=== PATIENT | male | born 1950 | race Caucasian/White ===

== ENCOUNTER 2022-08-08 11:50 | Inpatient (IN) ==
[2022-08-08] MEDS ORDERED: Piperacillin/Tazobac ADVAN 3.375 GM in NS 0.9% 100 ml BAG 100 ML IV ONE (12:15)
[2022-08-08] MEDS ORDERED: Vancomycin 1,000 MG in NS 0.9% 250 ml 250 ML IVPB ONE (12:15)
[2022-08-08] MEDS ORDERED: Pantoprazole VIAL 40 MG VIAL IV ONE (12:16)
[2022-08-08] MEDS ORDERED: Acetaminophen IV 1 GM/100ML 1,000 MG/100 ML BAG IV ONE ×2 (12:16→13:22)
[2022-08-08] MEDS ORDERED: Lactated Ringers 1000 ml BAG 1,000 ML IV ONE ×2 (12:16→13:30)
[2022-08-08 12:44] LABS: PCO2 Arterial 27 mmHg (35-45); PO2 Arterial 86 mmHg (80-100)
[2022-08-08 13:06] LABS: ABS Lymphocytes 1.2 10^3/uL (1.0-4.8); ABS Monocytes 0.5 10^3/uL (0.0-1.1); ABS Neutrophils 11.2 10^3/uL (1.5-7.6); ABS Nucleated RBC 0.01 10^3/ul; Eosinophil % 0.2 %; Hematocrit 30.4 % (38-53); Hemoglobin 9.2 g/dL (13.2-16.3); Mean Corpuscular Hgb Conc 30.3 g/dL (31-36); Mean Corpuscular Volume 82.4 fL (80-97); Nucleated Red Blood Cells % 0.1 /100 WBC (0.0-0.4); Platelet Count 440 10^3/uL (150-450); Red Blood Count 3.69 10^6/uL (4.06-5.63); Red Cell Distribution Width 18.5 % (12-17); White Blood Count 12.8 10^3/uL (3.6-10.2)
[2022-08-08 13:20] LABS: Activated Partial Thrombo Time 52.2 seconds (26.0-38.0)
[2022-08-08] MEDS ORDERED: Lactated Ringers 1000 ml BAG 500 ML IV ONE (13:31)
[2022-08-08 13:38] LABS: Potassium 4.3 mmol/L (3.5-5.0)
[2022-08-08 13:39] LABS: Albumin 2.6 g/dL (3.2-5.2); Albumin/Globulin Ratio 0.7 (1-3); C Reactive Protein 282.81 mg/L (<8.01); Creatinine, Serum 0.85 mg/dL (0.67-1.17); Globulin 3.9 g/dL (2-4); Total Bilirubin 0.2 mg/dL (0.2-1.0); Total Protein 6.5 g/dL (6.4-8.9); eGFR CKD-EPI 93.5 (>60)
[2022-08-08] MEDS ORDERED: Iodixanol (CONTRAST) 320 MG/ML 100 ML SDV IV ONE (14:15)
[2022-08-08 14:37] LABS: INR 6.16 (0.88-1.18)
[2022-08-08 14:56] LABS: High Sensitivity Troponin 1 Hr 50 pg/mL (<20)
[2022-08-08] MEDS ORDERED: Glycerin ADULT 2.4 gm SUPP PR ONE (15:16)
[2022-08-08 15:18] LABS: Urine Appearance Turbid; Urine Bilirubin Negative (Negative); Urine Blood 2+ (Negative); Urine Color Yellow; Urine Glucose Negative (Negative); Urine Ketones Negative (Negative); Urine Nitrite Negative (Negative); Urine Protein 1+(30 mg/dL) (Negative); Urine Specific Gravity 1.046 (1.002-1.030); Urine Urobilinogen Negative (Negative)
[2022-08-08 15:28] LABS: Urine Bacteria 1+ (Absent); Urine Red Blood Cell 3+(>10/hpf) (Absent); Urine White Blood Cell 3+(>20/hpf) (Absent)
[2022-08-08] MEDS ORDERED: Acetaminophen IV 1 GM/100ML 1,000 MG/100 ML BAG IV PRN (22:12)
[2022-08-09] MEDS: Cefepime 2 GM in Dextrose 2 GM/50 ML BAG IV SCH ×3 (00:07→22:58)
[2022-08-09] MEDS: metroNIDAZOLE IV 500 MG/100ML 500 MG/100 ML BAG IVPB SCH ×4 (00:46→23:40)
[2022-08-09] MEDS ORDERED: NS 0.45% 1000 ml BAG 1,000 ML IV SCH (03:00)
[2022-08-09] MEDS ORDERED: Valproic Acid LIQ 250 MG/5 ML UDC PO SCH (09:00)
[2022-08-09] MEDS: Valproic Acid LIQ 250 MG/5 ML UDC PO SCH ×2 (10:35→17:22)
[2022-08-09 13:10] LABS: ABS Eosinophils 0.2 10^3/uL (0.0-0.5); ABS Monocytes 0.3 10^3/uL (0.0-1.1); ABS Neutrophils 6.6 10^3/uL (1.5-7.6); ABS Nucleated RBC 0.01 10^3/ul; Eosinophil % 2.3 %; Hematocrit 27.7 % (38-53); Hemoglobin 8.5 g/dL (13.2-16.3); Lymphocyte % 12.5 %; Mean Corpuscular Hemoglobin 25.3 pg (27-33); Mean Corpuscular Hgb Conc 30.8 g/dL (31-36); Mean Corpuscular Volume 82.3 fL (80-97); Mean Platelet Volume 7.8 fL (7.5-11.2); Nucleated Red Blood Cells % 0.1 /100 WBC (0.0-0.4); Platelet Count 344 10^3/uL (150-450); Red Blood Count 3.37 10^6/uL (4.06-5.63); Red Cell Distribution Width 18.1 % (12-17); White Blood Count 8.1 10^3/uL (3.6-10.2)
[2022-08-09] MEDS ORDERED: Dextrose 50% Syringe 50 ml 25 GM/50 ML SYRINGE IV PUSH PRN (13:30)
[2022-08-09 13:47] LABS: INR 6.44 (0.88-1.18)
[2022-08-09 14:02] LABS: Albumin 2.3 g/dL (3.2-5.2); Magnesium 2.2 mg/dL (1.9-2.7)
[2022-08-09 14:09] LABS: Albumin/Globulin Ratio 0.7 (1-3); Globulin 3.4 g/dL (2-4); Phosphorus 3.6 mg/dL (2.5-5.0); Total Protein 5.7 g/dL (6.4-8.9)
[2022-08-09 15:00] LABS: Calcium 7.6 mg/dL (8.6-10.3)
[2022-08-09 15:01] LABS: Creatinine, Serum 0.65 mg/dL (0.67-1.17); Potassium 3.6 mmol/L (3.5-5.0); Total Bilirubin 0.2 mg/dL (0.2-1.0); eGFR CKD-EPI 101.4 (>60)
[2022-08-10 06:07] LABS: ABS Eosinophils 0.2 10^3/uL (0.0-0.5); ABS Lymphocytes 0.9 10^3/uL (1.0-4.8); ABS Monocytes 0.3 10^3/uL (0.0-1.1); ABS Neutrophils 4.7 10^3/uL (1.5-7.6); ABS Nucleated RBC 0.01 10^3/ul; Eosinophil % 2.9 %; Hematocrit 25.6 % (38-53); Hemoglobin 7.9 g/dL (13.2-16.3); Lymphocyte % 14.3 %; Mean Corpuscular Hemoglobin 24.9 pg (27-33); Mean Corpuscular Hgb Conc 30.7 g/dL (31-36); Mean Corpuscular Volume 81.1 fL (80-97); Mean Platelet Volume 8.2 fL (7.5-11.2); Nucleated Red Blood Cells % 0.2 /100 WBC (0.0-0.4); Platelet Count 274 10^3/uL (150-450); Red Blood Count 3.16 10^6/uL (4.06-5.63); Red Cell Distribution Width 18.1 % (12-17)
[2022-08-10 06:14] LABS: INR 8.19 (0.88-1.18)
[2022-08-10 06:23] LABS: Calcium 7.5 mg/dL (8.6-10.3); Creatinine, Serum 0.6 mg/dL (0.67-1.17); Magnesium 2.2 mg/dL (1.9-2.7); Phosphorus 3.5 mg/dL (2.5-5.0); Potassium 3.8 mmol/L (3.5-5.0); eGFR CKD-EPI 103.8 (>60)
[2022-08-10] MEDS ORDERED: Phytonadione Oral Solution 5 MG/25 ML UDC PO ONE (07:32)
[2022-08-10] MEDS: metroNIDAZOLE IV 500 MG/100ML 500 MG/100 ML BAG IVPB SCH ×3 (09:27→23:51)
[2022-08-10] MEDS: D5W 1000 ml BAG 1,000 ML IV SCH ×2 (09:27→22:40)
[2022-08-10] MEDS: Valproic Acid LIQ 250 MG/5 ML UDC PO SCH ×2 (09:28→19:06)
[2022-08-10] MEDS: Cefepime 2 GM in Dextrose 2 GM/50 ML BAG IV SCH ×2 (11:02→23:06)
[2022-08-10 12:12] LABS: Hemoglobin 7.8 g/dL (13.2-16.3); Mean Corpuscular Hemoglobin 25.5 pg (27-33); Mean Corpuscular Hgb Conc 31.3 g/dL (31-36); Mean Corpuscular Volume 81.5 fL (80-97); Mean Platelet Volume 8.2 fL (7.5-11.2); Platelet Count 260 10^3/uL (150-450); Red Blood Count 3.07 10^6/uL (4.06-5.63); Red Cell Distribution Width 18.1 % (12-17); White Blood Count 6.2 10^3/uL (3.6-10.2)
[2022-08-10] MEDS: Collagenase 250 units/gm OINT 1 tube TOPICAL SCH (15:18)
[2022-08-11 05:25] LABS: ABS Eosinophils 0.2 10^3/uL (0.0-0.5); ABS Monocytes 0.2 10^3/uL (0.0-1.1); ABS Neutrophils 5.3 10^3/uL (1.5-7.6); Eosinophil % 3.1 %; Hematocrit 24.6 % (38-53); Hemoglobin 7.8 g/dL (13.2-16.3); Lymphocyte % 14.2 %; Mean Corpuscular Hgb Conc 31.5 g/dL (31-36); Mean Corpuscular Volume 82.7 fL (80-97); Mean Platelet Volume 8.4 fL (7.5-11.2); Platelet Count 274 10^3/uL (150-450); Red Blood Count 2.98 10^6/uL (4.06-5.63); Red Cell Distribution Width 18.2 % (12-17); White Blood Count 6.7 10^3/uL (3.6-10.2)
[2022-08-11 05:28] LABS: INR 3.45 (0.88-1.18)
[2022-08-11 06:02] LABS: % Iron Saturation 11 % (15-55); .Transferrin 127 mg/dL (203-362); Anion Gap 10 mmol/L (2-16); Blood Urea Nitrogen 21 mg/dL (6-24); CO2 Carbon Dioxide 17 mmol/L (22-32); Calcium 7.1 mg/dL (8.6-10.3); Chloride 115 mmol/L (101-111); Creatinine, Serum 0.53 mg/dL (0.67-1.17); Glucose 167 mg/dL (70-100); Iron < 20 ug/dL (50-212); Magnesium 1.9 mg/dL (1.9-2.7); Phosphorus 2.7 mg/dL (2.5-5.0); Potassium 3.1 mmol/L (3.5-5.0); Sodium 142 mmol/L (135-145); Total Iron Binding Capacity 178 mcg/dL (250-450); Unsaturated Iron Binding 158 ug/dL; eGFR CKD-EPI 107.8 (>60)
[2022-08-11 06:27] LABS: Folate 15.97 ng/mL (5.90-24.80); Vitamin B12 632 pg/mL (180-914)
[2022-08-11] MEDS: metroNIDAZOLE IV 500 MG/100ML 500 MG/100 ML BAG IVPB SCH ×3 (07:19→23:35)
[2022-08-11] MEDS ORDERED: Magnesium Sulfate IV 1GM/100ML 1 GM/100 ML BAG IV ONE (07:56)
[2022-08-11] MEDS ORDERED: Iron Sucrose 20 MG/ML 5 ML VIAL IV PUSH ONE (07:57)
[2022-08-11] MEDS ORDERED: IRON-VITAMIN C 65/125(NF) (FERRONYL IRON) PO ONE (08:09)
[2022-08-11] MEDS ORDERED: Iron Sucrose 200 MG in NS 0.9% 100 ml IVPB ONE (08:30)
[2022-08-11] MEDS: Valproic Acid LIQ 250 MG/5 ML UDC PO SCH ×2 (08:55→17:00)
[2022-08-11] MEDS: KCL 20 MEQ/100 ML IVPREMIX 20 MEQ/100 ML BAG IV SCH ×3 (08:55→13:35)
[2022-08-11 09:03] LABS: TSH Ultra Thyroid Stim Horm 6.46 mcIU/mL (0.34-5.60)
[2022-08-11 09:16] LABS: Vitamin D Total 25(OH) 8.9 ng/mL (20-50)
[2022-08-11] MEDS: ceFAZolin 2 GM in NS PREMIX 2 GM/100 ML BAG IVPB SCH ×2 (10:51→16:59)
[2022-08-11] MEDS ORDERED: Furosemide 20 mg/2 ml IV VIAL IV ONE (11:08)
[2022-08-11] MEDS: Collagenase 250 units/gm OINT 1 tube TOPICAL SCH (15:45)
[2022-08-12] MEDS: ceFAZolin 2 GM in NS PREMIX 2 GM/100 ML BAG IVPB SCH ×3 (00:43→17:05)
[2022-08-12] MEDS: metroNIDAZOLE IV 500 MG/100ML 500 MG/100 ML BAG IVPB SCH ×3 (07:53→23:32)
[2022-08-12 08:07] LABS: Hematocrit 25.4 % (38-53); Hemoglobin 7.9 g/dL (13.2-16.3); Mean Corpuscular Hemoglobin 25.6 pg (27-33); Mean Corpuscular Hgb Conc 31.2 g/dL (31-36); Mean Platelet Volume 8.6 fL (7.5-11.2); Platelet Count 322 10^3/uL (150-450); Red Cell Distribution Width 17.9 % (12-17); White Blood Count 7.7 10^3/uL (3.6-10.2)
[2022-08-12 08:18] LABS: Albumin 2.1 g/dL (3.2-5.2); Albumin/Globulin Ratio 0.7 (1-3); Calcium 7.5 mg/dL (8.6-10.3); Creatinine, Serum 0.44 mg/dL (0.67-1.17); Globulin 3.1 g/dL (2-4); Magnesium 2.1 mg/dL (1.9-2.7); Phosphorus 2.4 mg/dL (2.5-5.0); Potassium 3.2 mmol/L (3.5-5.0); Total Bilirubin 0.2 mg/dL (0.2-1.0); Total Protein 5.2 g/dL (6.4-8.9)
[2022-08-12 08:35] LABS: Free T4 0.65 ng/dL (0.61-1.12)
[2022-08-12] MEDS ORDERED: Potassium Chloride LIQUID 20 MEQ/15 ML LIQUID PO ONE (08:37)
[2022-08-12] MEDS: Cholecalciferol (VIT D3) 1,000 unit TAB PO SCH (09:09)
[2022-08-12] MEDS: Valproic Acid LIQ 250 MG/5 ML UDC PO SCH ×2 (09:10→18:28)
[2022-08-13] MEDS: ceFAZolin 2 GM in NS PREMIX 2 GM/100 ML BAG IVPB SCH ×3 (00:51→17:41)
[2022-08-13 06:10] LABS: Hematocrit 24.3 % (38-53); Hemoglobin 7.6 g/dL (13.2-16.3); Mean Corpuscular Hemoglobin 25.3 pg (27-33); Mean Corpuscular Hgb Conc 31.4 g/dL (31-36); Mean Corpuscular Volume 80.5 fL (80-97); Mean Platelet Volume 8.4 fL (7.5-11.2); Platelet Count 300 10^3/uL (150-450); Red Blood Count 3.02 10^6/uL (4.06-5.63); Red Cell Distribution Width 18.1 % (12-17)
[2022-08-13 06:19] LABS: INR 1.7 (0.88-1.18)
[2022-08-13 06:32] LABS: ABS Eosinophils 0.2 10^3/uL (0.0-0.5); ABS Lymphocytes 1.2 10^3/uL (1.0-4.8); ABS Monocytes 0.4 10^3/uL (0.0-1.1); ABS Neutrophils 5.2 10^3/uL (1.5-7.6); ABS Nucleated RBC 0.01 10^3/ul; Albumin 2.1 g/dL (3.2-5.2); Albumin/Globulin Ratio 0.7 (1-3); Calcium 7.5 mg/dL (8.6-10.3); Creatinine, Serum 0.47 mg/dL (0.67-1.17); Eosinophil % 3.1 %; Lymphocyte % 17.4 %; Magnesium 1.9 mg/dL (1.9-2.7); Nucleated Red Blood Cells % 0.2 /100 WBC (0.0-0.4); Potassium 3.3 mmol/L (3.5-5.0); Total Bilirubin 0.2 mg/dL (0.2-1.0); Total Protein 5.1 g/dL (6.4-8.9); eGFR CKD-EPI 111.8 (>60)
[2022-08-13] MEDS ORDERED: Potassium Chloride LIQUID 20 MEQ/15 ML LIQUID PO ONE (07:37)
[2022-08-13] MEDS ORDERED: Magnesium Sulfate IV 1GM/100ML 1 GM/100 ML BAG IV ONE (08:30)
[2022-08-13] MEDS: metroNIDAZOLE IV 500 MG/100ML 500 MG/100 ML BAG IVPB SCH ×3 (09:05→23:32)
[2022-08-13] MEDS ORDERED: Enoxaparin 100 MG/ML SYR SUBCUT SCH (10:00)
[2022-08-13] MEDS: Cholecalciferol (VIT D3) 1,000 unit TAB PO SCH (11:54)
[2022-08-13] MEDS: Valproic Acid LIQ 250 MG/5 ML UDC PO SCH ×2 (11:54→17:41)
[2022-08-13] MEDS: Enoxaparin 100 MG/ML SYR SUBCUT SCH (21:30)
[2022-08-14] MEDS: ceFAZolin 2 GM in NS PREMIX 2 GM/100 ML BAG IVPB SCH ×3 (00:50→16:16)
[2022-08-14 06:23] LABS: Hematocrit 25.4 % (38-53); Hemoglobin 7.9 g/dL (13.2-16.3); Mean Corpuscular Hemoglobin 25.6 pg (27-33); Mean Corpuscular Hgb Conc 30.9 g/dL (31-36); Mean Corpuscular Volume 82.9 fL (80-97); Mean Platelet Volume 8.8 fL (7.5-11.2); Platelet Count 279 10^3/uL (150-450); Red Blood Count 3.07 10^6/uL (4.06-5.63); Red Cell Distribution Width 18.3 % (12-17); White Blood Count 5.6 10^3/uL (3.6-10.2)
[2022-08-14 06:27] LABS: INR 1.65 (0.88-1.18)
[2022-08-14 06:39] LABS: Potassium 3.3 mmol/L (3.5-5.0)
[2022-08-14 06:40] LABS: Albumin/Globulin Ratio 0.7 (1-3); Calcium 7.3 mg/dL (8.6-10.3); Creatinine, Serum 0.45 mg/dL (0.67-1.17); Globulin 2.9 g/dL (2-4); Magnesium 2.1 mg/dL (1.9-2.7); Phosphorus 2.6 mg/dL (2.5-5.0); Total Bilirubin 0.2 mg/dL (0.2-1.0); Total Protein 4.9 g/dL (6.4-8.9); eGFR CKD-EPI 113.3 (>60)
[2022-08-14] MEDS: metroNIDAZOLE IV 500 MG/100ML 500 MG/100 ML BAG IVPB SCH (07:39)
[2022-08-14] MEDS ORDERED: Potassium Chloride LIQUID 20 MEQ/15 ML LIQUID PO ONE (08:15)
[2022-08-14] MEDS: Cholecalciferol (VIT D3) 1,000 unit TAB PO SCH (11:03)
[2022-08-14] MEDS: Enoxaparin 100 MG/ML SYR SUBCUT SCH ×2 (11:03→20:12)
[2022-08-14] MEDS: Valproic Acid LIQ 250 MG/5 ML UDC PO SCH ×2 (11:04→17:59)
[2022-08-14] MEDS: Collagenase 250 units/gm OINT 1 tube TOPICAL SCH (11:11)
[2022-08-14 12:43] LABS: C Reactive Protein 122.13 mg/L (<8.01)
[2022-08-15] MEDS: ceFAZolin 2 GM in NS PREMIX 2 GM/100 ML BAG IVPB SCH ×3 (00:28→17:14)
[2022-08-15] MEDS ORDERED: Lidocaine 2% PF 5 ML VIAL ONE (06:11)
[2022-08-15] MEDS ORDERED: Propofol 10 MG/ML 20 ML BTL ONE ×2 (06:14→08:21)
[2022-08-15] MEDS ORDERED: Rocuronium 50 mg VIAL 10 mg/ml 5 ml VIAL (50 mg) ONE (06:15)
[2022-08-15 06:18] LABS: Hematocrit 22.8 % (38-53); Hemoglobin 7.3 g/dL (13.2-16.3); Mean Corpuscular Hemoglobin 26.1 pg (27-33); Mean Corpuscular Hgb Conc 31.8 g/dL (31-36); Mean Platelet Volume 8.7 fL (7.5-11.2); Platelet Count 277 10^3/uL (150-450); Red Blood Count 2.78 10^6/uL (4.06-5.63); Red Cell Distribution Width 18.3 % (12-17); White Blood Count 5.4 10^3/uL (3.6-10.2)
[2022-08-15 06:35] LABS: Albumin 1.9 g/dL (3.2-5.2); Anion Gap 11 mmol/L (2-16); CO2 Carbon Dioxide 20 mmol/L (22-32); Calcium 7.2 mg/dL (8.6-10.3); Chloride 116 mmol/L (101-111); Potassium 3.3 mmol/L (3.5-5.0); Sodium 147 mmol/L (135-145)
[2022-08-15 06:41] LABS: AST 9 U/L (13-39); Albumin/Globulin Ratio 0.7 (1-3); Alkaline Phosphatase 78 U/L (35-149); Blood Urea Nitrogen 20 mg/dL (6-24); Globulin 2.8 g/dL (2-4); Glucose 84 mg/dL (70-100); Total Protein 4.7 g/dL (6.4-8.9); eGFR CKD-EPI 117.4 (>60)
[2022-08-15 06:45] LABS: ALT < 3 U/L (7-52)
[2022-08-15] MEDS: KCL 20 MEQ/100 ML IVPREMIX 20 MEQ/100 ML BAG IV SCH ×2 (08:17→15:02)
[2022-08-15] MEDS ORDERED: Glycopyrrolate IV 0.2 MG/ML 1 ML VIAL ONE (08:21)
[2022-08-15] MEDS ORDERED: fentaNYL 100 mcg/2 ml 50 MCG/ML VIAL ONE (08:24)
[2022-08-15] MEDS ORDERED: Bupivacaine 0.25% SDV 30 ML ONE (09:42)
[2022-08-15] MEDS ORDERED: Phenylephrine 40 mcg/mL 10mL (400mcg) SYRINGE ONE (10:20)
[2022-08-15] MEDS ORDERED: KCL 20 MEQ/100 ML IVPREMIX 20 MEQ/100 ML BAG ONE (15:01)
[2022-08-15] MEDS: Cholecalciferol (VIT D3) 1,000 unit TAB PO SCH (15:03)
[2022-08-15] MEDS: Valproic Acid LIQ 250 MG/5 ML UDC PO SCH ×2 (15:04→17:15)
[2022-08-16] MEDS: ceFAZolin 2 GM in NS PREMIX 2 GM/100 ML BAG IVPB SCH ×4 (00:27→23:59)
[2022-08-16] MEDS: Morphine 2 MG/ML SYRINGE IV PRN ×2 (02:38→17:12)
[2022-08-16 06:18] LABS: Hematocrit 22.1 % (38-53); Hemoglobin 6.7 g/dL (13.2-16.3); Mean Corpuscular Hemoglobin 24.6 pg (27-33); Mean Corpuscular Hgb Conc 30.1 g/dL (31-36); Mean Corpuscular Volume 81.6 fL (80-97); Mean Platelet Volume 8.7 fL (7.5-11.2); Platelet Count 283 10^3/uL (150-450); Red Blood Count 2.71 10^6/uL (4.06-5.63); Red Cell Distribution Width 18.3 % (12-17); White Blood Count 5.7 10^3/uL (3.6-10.2)
[2022-08-16 06:33] LABS: Creatinine, Serum 0.39 mg/dL (0.67-1.17); Magnesium 1.9 mg/dL (1.9-2.7); Potassium 3.8 mmol/L (3.5-5.0); eGFR CKD-EPI 118.3 (>60)
[2022-08-16] MEDS: Valproic Acid LIQ 250 MG/5 ML UDC PO SCH ×2 (08:41→17:17)
[2022-08-16] MEDS: Cholecalciferol (VIT D3) 1,000 unit TAB PO SCH (08:42)
[2022-08-16] MEDS: Enoxaparin 100 MG/ML SYR SUBCUT SCH ×2 (08:46→20:21)
[2022-08-16] MEDS: KCL 20 MEQ/100 ML IVPREMIX 20 MEQ/100 ML BAG IV ONE ×2 (09:13→09:48)
[2022-08-16] MEDS ORDERED: CALCIUM GLUCONATE 1GM/50ML NS 1 GM/50 ML BAG IV ONE (10:10)
[2022-08-16 16:16] LABS: Hemoglobin 7.9 g/dL (13.2-16.3); Mean Corpuscular Hemoglobin 25.5 pg (27-33); Mean Corpuscular Hgb Conc 31.6 g/dL (31-36); Mean Corpuscular Volume 80.7 fL (80-97); Mean Platelet Volume 8.2 fL (7.5-11.2); Platelet Count 267 10^3/uL (150-450); Red Blood Count 3.09 10^6/uL (4.06-5.63); Red Cell Distribution Width 18.8 % (12-17); White Blood Count 5.6 10^3/uL (3.6-10.2)
[2022-08-17 06:05] LABS: Hematocrit 25.2 % (38-53); Hemoglobin 8.1 g/dL (13.2-16.3); Mean Corpuscular Hemoglobin 25.5 pg (27-33); Mean Corpuscular Volume 79.5 fL (80-97); Mean Platelet Volume 8.3 fL (7.5-11.2); Platelet Count 289 10^3/uL (150-450); Red Blood Count 3.17 10^6/uL (4.06-5.63); Red Cell Distribution Width 18.7 % (12-17); White Blood Count 6.8 10^3/uL (3.6-10.2)
[2022-08-17 06:21] LABS: Calcium 7.5 mg/dL (8.6-10.3); Creatinine, Serum 0.34 mg/dL (0.67-1.17); Magnesium 1.8 mg/dL (1.9-2.7); Phosphorus 2.2 mg/dL (2.5-5.0); Potassium 3.5 mmol/L (3.5-5.0); eGFR CKD-EPI 123.3 (>60)
[2022-08-17] MEDS ORDERED: Magnesium Sulfate IV 3 GM in NS 0.9% 100 ml BAG 100 ML IVPB ONE (07:50)
[2022-08-17] MEDS: Morphine 2 MG/ML SYRINGE IV PRN ×2 (07:53→09:14)
[2022-08-17] MEDS: ceFAZolin 2 GM in NS PREMIX 2 GM/100 ML BAG IVPB SCH (07:53)
[2022-08-17] MEDS ORDERED: Potassium Phosphate IV 15 MMOL in NS 0.9% 250 ml 250 ML IVPB ONE (08:00)
[2022-08-17 08:56] LABS: C Reactive Protein 88.38 mg/L (<8.01)
[2022-08-17] MEDS: Valproic Acid LIQ 250 MG/5 ML UDC PO SCH ×2 (10:23→17:27)
[2022-08-17] MEDS: Cholecalciferol (VIT D3) 1,000 unit TAB PO SCH (10:24)
[2022-08-17] MEDS: Enoxaparin 100 MG/ML SYR SUBCUT SCH ×2 (10:27→21:49)
[2022-08-18 05:55] LABS: Hematocrit 25.9 % (38-53); Hemoglobin 8.4 g/dL (13.2-16.3); Mean Corpuscular Hemoglobin 26.2 pg (27-33); Mean Corpuscular Hgb Conc 32.5 g/dL (31-36); Mean Corpuscular Volume 80.6 fL (80-97); Mean Platelet Volume 7.8 fL (7.5-11.2); Platelet Count 293 10^3/uL (150-450); Red Blood Count 3.22 10^6/uL (4.06-5.63); Red Cell Distribution Width 19.2 % (12-17); White Blood Count 6.8 10^3/uL (3.6-10.2)
[2022-08-18 06:16] LABS: Calcium 7.3 mg/dL (8.6-10.3); Creatinine, Serum 0.32 mg/dL (0.67-1.17); Phosphorus 2.9 mg/dL (2.5-5.0); Potassium 3.4 mmol/L (3.5-5.0); eGFR CKD-EPI 125.6 (>60)
[2022-08-18] MEDS ORDERED: KCL 20 MEQ/100 ML IVPREMIX 20 MEQ/100 ML BAG IV ONE (07:30)
[2022-08-18] MEDS: Cholecalciferol (VIT D3) 1,000 unit TAB PO SCH (08:39)
[2022-08-18] MEDS: Enoxaparin 100 MG/ML SYR SUBCUT SCH ×2 (08:40→21:16)
[2022-08-18] MEDS: Valproic Acid LIQ 250 MG/5 ML UDC PO SCH ×2 (08:43→18:22)
[2022-08-19] MEDS: Cholecalciferol (VIT D3) 1,000 unit TAB PO SCH (08:41)
[2022-08-19] MEDS: Enoxaparin 100 MG/ML SYR SUBCUT SCH ×2 (08:42→22:06)
[2022-08-19] MEDS: Valproic Acid LIQ 250 MG/5 ML UDC PO SCH ×2 (08:42→18:18)
[2022-08-19 11:47] LABS: Calcium 7.3 mg/dL (8.6-10.3); Creatinine, Serum 0.31 mg/dL (0.67-1.17); Magnesium 1.8 mg/dL (1.9-2.7); Phosphorus 2.8 mg/dL (2.5-5.0); Potassium 3.2 mmol/L (3.5-5.0); eGFR CKD-EPI 126.8 (>60)
[2022-08-19] MEDS: Morphine 2 MG/ML SYRINGE IV PRN (14:33)
[2022-08-19] MEDS ORDERED: Magnesium Sulfate IV 3 GM in NS 0.9% 100 ml BAG 100 ML IVPB ONE (17:18)
[2022-08-19] MEDS: KCL 20 MEQ/100 ML IVPREMIX 20 MEQ/100 ML BAG IV SCH ×2 (18:08→22:07)
[2022-08-20] MEDS: Morphine 2 MG/ML SYRINGE IV PRN ×2 (00:47→13:48)
[2022-08-20] MEDS ORDERED: Magnesium Sulfate 2 gm BAG 2 GM/50 ML BAG IVPB ONE (07:16)
[2022-08-20] MEDS ORDERED: Potassium Chlor 20 meq TAB.ER PO ONE (07:17)
[2022-08-20 08:20] LABS: ABS Eosinophils 0.1 10^3/uL (0.0-0.5); ABS Lymphocytes 1.3 10^3/uL (1.0-4.8); ABS Neutrophils 5.6 10^3/uL (1.5-7.6); ABS Nucleated RBC 0.01 10^3/ul; Eosinophil % 1.5 %; Hematocrit 25.8 % (38-53); Hemoglobin 8.3 g/dL (13.2-16.3); Lymphocyte % 16.1 %; Mean Corpuscular Hgb Conc 32.4 g/dL (31-36); Mean Corpuscular Volume 80.1 fL (80-97); Mean Platelet Volume 7.8 fL (7.5-11.2); Nucleated Red Blood Cells % 0.1 /100 WBC (0.0-0.4); Platelet Count 306 10^3/uL (150-450); Red Blood Count 3.21 10^6/uL (4.06-5.63); Red Cell Distribution Width 19.8 % (12-17)
[2022-08-20 08:40] LABS: Calcium 7.3 mg/dL (8.6-10.3); Creatinine, Serum 0.34 mg/dL (0.67-1.17); Magnesium 2.2 mg/dL (1.9-2.7); Potassium 3.8 mmol/L (3.5-5.0); eGFR CKD-EPI 123.3 (>60)
[2022-08-20] MEDS: Valproic Acid LIQ 250 MG/5 ML UDC PO SCH ×2 (09:34→18:34)
[2022-08-20] MEDS: Cholecalciferol (VIT D3) 1,000 unit TAB PO SCH (09:35)
[2022-08-20] MEDS: Enoxaparin 100 MG/ML SYR SUBCUT SCH ×2 (09:36→20:43)
[2022-08-20] MEDS ORDERED: Lactated Ringers 1000 ml BAG 1,000 ML IV SCH ×2 (10:00→14:34)
[2022-08-20 10:29] LABS: INR 1.18 (0.88-1.18)
[2022-08-20] MEDS: Acetaminophen IV 1 GM/100ML 1,000 MG/100 ML BAG IV PRN (13:38)
[2022-08-20 13:51] LABS: Hemoglobin 8.1 g/dL (13.2-16.3); Mean Corpuscular Hemoglobin 26.1 pg (27-33); Mean Corpuscular Hgb Conc 32.6 g/dL (31-36); Mean Corpuscular Volume 80.2 fL (80-97); Mean Platelet Volume 7.3 fL (7.5-11.2); Platelet Count 326 10^3/uL (150-450); Red Blood Count 3.11 10^6/uL (4.06-5.63); Red Cell Distribution Width 19.9 % (12-17); White Blood Count 8.7 10^3/uL (3.6-10.2)
[2022-08-20 14:31] LABS: Albumin 2.3 g/dL (3.2-5.2); Calcium 7.3 mg/dL (8.6-10.3); Potassium 3.6 mmol/L (3.5-5.0); Total Bilirubin 0.2 mg/dL (0.2-1.0)
[2022-08-20 14:37] LABS: Albumin/Globulin Ratio 0.6 (1-3); Creatinine, Serum 0.35 mg/dL (0.67-1.17); Globulin 3.7 g/dL (2-4); eGFR CKD-EPI 122.2 (>60)
[2022-08-20 14:55] LABS: ABS Basophils 0.1 10^3/uL (0.0-0.1); ABS Eosinophils 0.1 10^3/uL (0.0-0.5); ABS Lymphocytes 1.2 10^3/uL (1.0-4.8); ABS Neutrophils 6.3 10^3/uL (1.5-7.6); ABS Nucleated RBC 0.01 10^3/ul; Eosinophil % 1.2 %; Lymphocyte % 13.7 %; Nucleated Red Blood Cells % 0.1 /100 WBC (0.0-0.4)
[2022-08-20] MEDS ORDERED: Lactated Ringers 1000 ml BAG 1,000 ML IV ONE (15:39)
[2022-08-20] MEDS: Lactated Ringers 1000 ml BAG 1,000 ML IV SCH ×2 (16:54→23:34)
[2022-08-20] MEDS ORDERED: Warfarin per PHARMACY **NOTE FOLLOW UP SCH (18:00)
[2022-08-21] MEDS: Acetaminophen IV 1 GM/100ML 1,000 MG/100 ML BAG IV PRN (02:27)
[2022-08-21 07:00] LABS: ABS Eosinophils 0.1 10^3/uL (0.0-0.5); ABS Lymphocytes 1.1 10^3/uL (1.0-4.8); ABS Monocytes 0.9 10^3/uL (0.0-1.1); ABS Neutrophils 5.7 10^3/uL (1.5-7.6); Eosinophil % 1.4 %; Hematocrit 23.5 % (38-53); Hemoglobin 7.5 g/dL (13.2-16.3); Lymphocyte % 13.9 %; Mean Corpuscular Hemoglobin 26.2 pg (27-33); Mean Corpuscular Hgb Conc 31.9 g/dL (31-36); Mean Platelet Volume 7.8 fL (7.5-11.2); Nucleated Red Blood Cells % 0.1 /100 WBC (0.0-0.4); Platelet Count 267 10^3/uL (150-450); Red Blood Count 2.86 10^6/uL (4.06-5.63); Red Cell Distribution Width 19.6 % (12-17); White Blood Count 7.8 10^3/uL (3.6-10.2)
[2022-08-21 07:04] LABS: INR 1.26 (0.88-1.18)
[2022-08-21 07:13] LABS: Anion Gap 10 mmol/L (2-16); Blood Urea Nitrogen 7 mg/dL (6-24); CO2 Carbon Dioxide 24 mmol/L (22-32); Calcium 7.2 mg/dL (8.6-10.3); Chloride 103 mmol/L (101-111); Creatinine, Serum 0.32 mg/dL (0.67-1.17); Glucose 78 mg/dL (70-100); Potassium 3.2 mmol/L (3.5-5.0); Sodium 137 mmol/L (135-145); eGFR CKD-EPI 125.6 (>60)
[2022-08-21] MEDS: Lactated Ringers 1000 ml BAG 1,000 ML IV SCH (07:31)
[2022-08-21 08:55] LABS: Magnesium 1.9 mg/dL (1.9-2.7)
[2022-08-21] MEDS: Enoxaparin 100 MG/ML SYR SUBCUT SCH ×2 (09:27→22:18)
[2022-08-21] MEDS: Cholecalciferol (VIT D3) 1,000 unit TAB PO SCH (09:27)
[2022-08-21] MEDS: Valproic Acid LIQ 250 MG/5 ML UDC PO SCH ×2 (09:27→17:58)
[2022-08-21] MEDS ORDERED: NS 0.9% 1000 ml BAG 1,000 ML IV ONE ×2 (10:12→18:22)
[2022-08-21] MEDS ORDERED: NS 0.9% 1000 ml BAG 1,000 ML IV SCH (10:15)
[2022-08-21] MEDS: Morphine 2 MG/ML SYRINGE IV PRN ×2 (16:17→20:57)
[2022-08-21] MEDS: Warfarin DAILY REMINDER **NOTE FOLLOW UP SCH (17:58)
[2022-08-21] MEDS ORDERED: Potassium Chlor 20 meq TAB.ER PO ONE (18:26)
[2022-08-21 19:10] LABS: Rapid COVID-19 Molecular Undetected (Undetected)
[2022-08-21 19:15] LABS: Lipase < 10 U/L (11.0-82.0)
[2022-08-21] MEDS ORDERED: Potassium Chloride LIQUID 20 MEQ/15 ML LIQUID PO ONE (19:30)
[2022-08-21] MEDS ORDERED: Iohexol 350 (CONTRAST) 500 ML MDV IV ONE (20:36)
[2022-08-22] MEDS: Morphine 2 MG/ML SYRINGE IV PRN (02:06)
[2022-08-22 06:10] LABS: ABS Basophils 0.1 10^3/uL (0.0-0.1); ABS Eosinophils 0.1 10^3/uL (0.0-0.5); ABS Monocytes 0.8 10^3/uL (0.0-1.1); ABS Neutrophils 4.2 10^3/uL (1.5-7.6); Eosinophil % 1.3 %; Hematocrit 24.8 % (38-53); Hemoglobin 7.9 g/dL (13.2-16.3); Lymphocyte % 16.7 %; Mean Corpuscular Hemoglobin 26.4 pg (27-33); Mean Corpuscular Hgb Conc 31.7 g/dL (31-36); Mean Corpuscular Volume 83.2 fL (80-97); Mean Platelet Volume 7.6 fL (7.5-11.2); Nucleated Red Blood Cells % 0.1 /100 WBC (0.0-0.4); Platelet Count 254 10^3/uL (150-450); Red Blood Count 2.98 10^6/uL (4.06-5.63); Red Cell Distribution Width 19.4 % (12-17); White Blood Count 6.1 10^3/uL (3.6-10.2)
[2022-08-22 06:12] LABS: INR 1.31 (0.88-1.18)
[2022-08-22 06:23] LABS: Calcium 7.6 mg/dL (8.6-10.3); Potassium 4.1 mmol/L (3.5-5.0)
[2022-08-22 06:29] LABS: Creatinine, Serum 0.33 mg/dL (0.67-1.17); eGFR CKD-EPI 124.4 (>60)
[2022-08-22] MEDS: Valproic Acid LIQ 250 MG/5 ML UDC PO SCH ×2 (09:03→18:17)
[2022-08-22] MEDS: Cholecalciferol (VIT D3) 1,000 unit TAB PO SCH (09:06)
[2022-08-22] MEDS: Enoxaparin 100 MG/ML SYR SUBCUT SCH ×2 (09:07→20:40)
[2022-08-22 10:16] LABS: C Reactive Protein 154.16 mg/L (<8.01)
[2022-08-22] MEDS ORDERED: NS 0.9% 1000 ml BAG 1,000 ML IV ONE (13:33)
[2022-08-22] MEDS: Warfarin DAILY REMINDER **NOTE FOLLOW UP SCH (18:22)
[2022-08-23 05:32] LABS: ABS Basophils 0.2 10^3/uL (0.0-0.1); ABS Eosinophils 0.1 10^3/uL (0.0-0.5); ABS Lymphocytes 1.1 10^3/uL (1.0-4.8); ABS Monocytes 0.6 10^3/uL (0.0-1.1); ABS Neutrophils 3.5 10^3/uL (1.5-7.6); ABS Nucleated RBC 0.01 10^3/ul; Eosinophil % 2.1 %; Hematocrit 23.7 % (38-53); Hemoglobin 7.6 g/dL (13.2-16.3); Lymphocyte % 19.3 %; Mean Corpuscular Hemoglobin 25.8 pg (27-33); Mean Corpuscular Hgb Conc 32.2 g/dL (31-36); Mean Corpuscular Volume 80.3 fL (80-97); Mean Platelet Volume 6.9 fL (7.5-11.2); Nucleated Red Blood Cells % 0.1 /100 WBC (0.0-0.4); Platelet Count 249 10^3/uL (150-450); Red Blood Count 2.95 10^6/uL (4.06-5.63); Red Cell Distribution Width 18.9 % (12-17); White Blood Count 5.5 10^3/uL (3.6-10.2)
[2022-08-23 05:39] LABS: INR 1.31 (0.88-1.18)
[2022-08-23 06:14] LABS: Albumin 2.1 g/dL (3.2-5.2); Albumin/Globulin Ratio 0.6 (1-3); Calcium 7.6 mg/dL (8.6-10.3); Globulin 3.4 g/dL (2-4); Potassium 3.4 mmol/L (3.5-5.0); Total Bilirubin 0.1 mg/dL (0.2-1.0); Total Protein 5.5 g/dL (6.4-8.9)
[2022-08-23 06:15] LABS: Creatinine, Serum 0.29 mg/dL (0.67-1.17); eGFR CKD-EPI 129.3 (>60)
[2022-08-23 08:01] LABS: Magnesium 1.8 mg/dL (1.9-2.7)
[2022-08-23] MEDS: Potassium Chlor 20 meq TAB.ER PO SCH ×2 (09:10→11:18)
[2022-08-23] MEDS ORDERED: Magnesium Sulfate 2 gm BAG 2 GM/50 ML BAG IVPB ONE (09:23)
[2022-08-23] MEDS: Cholecalciferol (VIT D3) 1,000 unit TAB PO SCH (10:06)
[2022-08-23] MEDS: Valproic Acid LIQ 250 MG/5 ML UDC PO SCH ×2 (10:12→18:38)
[2022-08-23] MEDS: Enoxaparin 100 MG/ML SYR SUBCUT SCH ×2 (10:15→22:38)
[2022-08-23] MEDS: Albumin Human 25% 12.5 GM/50 ML BTL IV SCH ×3 (12:25→23:12)
[2022-08-23] MEDS ORDERED: cefTRIAXone 2 gm/50 mL D5W 2 GM/50 ML BAG IV SCH (16:30)
[2022-08-23] MEDS ORDERED: Ampicillin ADVAN 2 GM in NS 0.9% 100 ml BAG 100 ML IVPB SCH (17:00)
[2022-08-23] MEDS ORDERED: Acyclovir IV 860 MG in NS 0.9% 250 ml 250 ML IVPB SCH (17:00)
[2022-08-23] MEDS ORDERED: Vancomycin 1,250 MG in NS 0.9% 250 ml 250 ML IVPB SCH (17:00)
[2022-08-23] MEDS: Warfarin DAILY REMINDER **NOTE FOLLOW UP SCH (18:38)
[2022-08-24] MEDS: Albumin Human 25% 12.5 GM/50 ML BTL IV SCH ×4 (00:20→19:28)
[2022-08-24 06:01] LABS: ABS Eosinophils 0.1 10^3/uL (0.0-0.5); ABS Lymphocytes 0.9 10^3/uL (1.0-4.8); ABS Monocytes 0.6 10^3/uL (0.0-1.1); ABS Neutrophils 3.2 10^3/uL (1.5-7.6); ABS Nucleated RBC 0.01 10^3/ul; Eosinophil % 1.8 %; Hematocrit 22.7 % (38-53); Hemoglobin 7.3 g/dL (13.2-16.3); Lymphocyte % 18.9 %; Mean Corpuscular Hemoglobin 25.8 pg (27-33); Mean Corpuscular Volume 80.7 fL (80-97); Mean Platelet Volume 7.4 fL (7.5-11.2); Nucleated Red Blood Cells % 0.2 /100 WBC (0.0-0.4); Platelet Count 238 10^3/uL (150-450); Red Blood Count 2.82 10^6/uL (4.06-5.63); Red Cell Distribution Width 19.2 % (12-17); White Blood Count 4.8 10^3/uL (3.6-10.2)
[2022-08-24 06:06] LABS: INR 1.41 (0.88-1.18)
[2022-08-24 06:36] LABS: Albumin 2.6 g/dL (3.2-5.2); Albumin/Globulin Ratio 0.8 (1-3); Calcium 7.7 mg/dL (8.6-10.3); Creatinine, Serum 0.3 mg/dL (0.67-1.17); Globulin 3.4 g/dL (2-4); Potassium 3.4 mmol/L (3.5-5.0); Total Bilirubin 0.2 mg/dL (0.2-1.0)
[2022-08-24] MEDS ORDERED: Potassium Chlor 20 meq TAB.ER PO ONE (07:25)
[2022-08-24 07:53] LABS: Magnesium 1.9 mg/dL (1.9-2.7)
[2022-08-24] MEDS: Cholecalciferol (VIT D3) 1,000 unit TAB PO SCH (08:36)
[2022-08-24] MEDS: Enoxaparin 100 MG/ML SYR SUBCUT SCH ×2 (08:37→21:37)
[2022-08-24] MEDS: Valproic Acid LIQ 250 MG/5 ML UDC PO SCH ×2 (08:37→18:22)
[2022-08-24] MEDS ORDERED: Furosemide 20 mg/2 ml IV VIAL IV ONE (14:39)
[2022-08-24] MEDS: Warfarin DAILY REMINDER **NOTE FOLLOW UP SCH (18:24)
[2022-08-25] MEDS: Albumin Human 25% 12.5 GM/50 ML BTL IV SCH ×4 (00:16→17:58)
[2022-08-25 06:09] LABS: Hematocrit 22.1 % (38-53); Hemoglobin 7.2 g/dL (13.2-16.3); Mean Corpuscular Hgb Conc 32.7 g/dL (31-36); Mean Corpuscular Volume 79.5 fL (80-97); Mean Platelet Volume 6.7 fL (7.5-11.2); Platelet Count 263 10^3/uL (150-450); Red Blood Count 2.78 10^6/uL (4.06-5.63); Red Cell Distribution Width 19.2 % (12-17); White Blood Count 5.3 10^3/uL (3.6-10.2)
[2022-08-25 06:21] LABS: INR 1.78 (0.88-1.18)
[2022-08-25 06:38] LABS: Albumin 3.1 g/dL (3.2-5.2); Albumin/Globulin Ratio 0.9 (1-3); Calcium 8.1 mg/dL (8.6-10.3); Creatinine, Serum 0.33 mg/dL (0.67-1.17); Globulin 3.4 g/dL (2-4); Potassium 3.3 mmol/L (3.5-5.0); Total Bilirubin 0.2 mg/dL (0.2-1.0); Total Protein 6.5 g/dL (6.4-8.9); eGFR CKD-EPI 124.4 (>60)
[2022-08-25 07:29] LABS: ABS Eosinophils 0.1 10^3/uL (0.0-0.5); ABS Lymphocytes 1.1 10^3/uL (1.0-4.8); ABS Monocytes 0.7 10^3/uL (0.0-1.1); ABS Neutrophils 3.3 10^3/uL (1.5-7.6); ABS Nucleated RBC 0.01 10^3/ul; Lymphocyte % 20.2 %; Nucleated Red Blood Cells % 0.2 /100 WBC (0.0-0.4)
[2022-08-25] MEDS: Valproic Acid LIQ 250 MG/5 ML UDC PO SCH ×2 (10:03→17:06)
[2022-08-25] MEDS: Potassium Chloride LIQUID 20 MEQ/15 ML LIQUID PO SCH (10:03)
[2022-08-25] MEDS: Cholecalciferol (VIT D3) 1,000 unit TAB PO SCH (10:05)
[2022-08-25] MEDS: Enoxaparin 100 MG/ML SYR SUBCUT SCH ×2 (10:05→19:26)
[2022-08-25] MEDS ORDERED: Albumin Human 25% 12.5 GM/50 ML BTL IV SCH (15:00)
[2022-08-25] MEDS: Warfarin DAILY REMINDER **NOTE FOLLOW UP SCH (17:29)
[2022-08-26] MEDS: Albumin Human 25% 12.5 GM/50 ML BTL IV SCH ×3 (01:06→13:30)
[2022-08-26 01:31] LABS: ABS Basophils 0.1 10^3/uL (0.0-0.1); ABS Eosinophils 0.1 10^3/uL (0.0-0.5); ABS Monocytes 0.7 10^3/uL (0.0-1.1); ABS Neutrophils 4.8 10^3/uL (1.5-7.6); ABS Nucleated RBC 0.02 10^3/ul; Eosinophil % 1.4 %; Hematocrit 22.9 % (38-53); Hemoglobin 7.6 g/dL (13.2-16.3); Mean Corpuscular Hemoglobin 26.5 pg (27-33); Mean Corpuscular Hgb Conc 33.3 g/dL (31-36); Mean Corpuscular Volume 79.6 fL (80-97); Mean Platelet Volume 7.1 fL (7.5-11.2); Nucleated Red Blood Cells % 0.2 /100 WBC (0.0-0.4); Platelet Count 304 10^3/uL (150-450); Red Blood Count 2.88 10^6/uL (4.06-5.63); White Blood Count 6.6 10^3/uL (3.6-10.2)
[2022-08-26 01:46] LABS: Calcium 8.2 mg/dL (8.6-10.3); Creatinine, Serum 0.39 mg/dL (0.67-1.17); Potassium 3.5 mmol/L (3.5-5.0); eGFR CKD-EPI 118.3 (>60)
[2022-08-26] MEDS ORDERED: NS 0.9% 1000 ml BAG 1,000 ML IV SCH (02:15)
[2022-08-26] MEDS ORDERED: Vancomycin per Pharmacy 1 EA NOTE FOLLOW UP SCH (03:00)
[2022-08-26] MEDS: Cefepime 2 GM in Dextrose 2 GM/50 ML BAG IV SCH ×2 (03:58→16:43)
[2022-08-26 05:19] LABS: Hematocrit 22.7 % (38-53); Hemoglobin 7.3 g/dL (13.2-16.3); Mean Corpuscular Hemoglobin 25.7 pg (27-33); Mean Corpuscular Hgb Conc 32.4 g/dL (31-36); Mean Corpuscular Volume 79.5 fL (80-97); Mean Platelet Volume 6.9 fL (7.5-11.2); Platelet Count 271 10^3/uL (150-450); Red Blood Count 2.86 10^6/uL (4.06-5.63); Red Cell Distribution Width 18.8 % (12-17); White Blood Count 6.1 10^3/uL (3.6-10.2)
[2022-08-26 05:26] LABS: INR 2.53 (0.88-1.18)
[2022-08-26 05:56] LABS: Calcium 8.2 mg/dL (8.6-10.3); Creatinine, Serum 0.36 mg/dL (0.67-1.17); Magnesium 1.8 mg/dL (1.9-2.7); Potassium 3.4 mmol/L (3.5-5.0); eGFR CKD-EPI 121.2 (>60)
[2022-08-26 06:52] LABS: Urine Appearance Turbid; Urine Bacteria 2+ (Absent); Urine Bilirubin Negative (Negative); Urine Blood 3+ (Negative); Urine Glucose Negative (Negative); Urine Ketones Negative (Negative); Urine Nitrite Negative (Negative); Urine Protein 2+(100 mg/dL) (Negative); Urine Red Blood Cell 3+(>10/hpf) (Absent); Urine Specific Gravity 1.017 (1.002-1.030); Urine Urobilinogen Negative (Negative); Urine White Blood Cell 3+(>20/hpf) (Absent)
[2022-08-26 06:53] LABS: Urine Color Red
[2022-08-26] MEDS ORDERED: Vancomycin 1,750 MG in NS 0.9% 500 ml BAG 500 ML IVPB ONE (07:00)
[2022-08-26] MEDS ORDERED: Iohexol 350 (CONTRAST) 500 ML MDV IV ONE (09:48)
[2022-08-26] MEDS: Valproic Acid LIQ 250 MG/5 ML UDC PO SCH ×2 (09:59→17:27)
[2022-08-26] MEDS: Potassium Chloride LIQUID 20 MEQ/15 ML LIQUID PO SCH (09:59)
[2022-08-26] MEDS: Cholecalciferol (VIT D3) 1,000 unit TAB PO SCH (10:00)
[2022-08-26] MEDS ORDERED: Magnesium Sulfate 2 gm BAG 2 GM/50 ML BAG IVPB ONE (10:59)
[2022-08-26] MEDS: metroNIDAZOLE IV 500 MG/100ML 500 MG/100 ML BAG IVPB SCH ×2 (11:07→17:24)
[2022-08-26 13:25] LABS: C Reactive Protein 82.09 mg/L (<8.01)
[2022-08-26] MEDS: Vancomycin 1000 MG in NS 0.9% 250 ML IVPB SCH ×2 (15:08→21:11)
[2022-08-26] MEDS: Warfarin DAILY REMINDER **NOTE FOLLOW UP SCH (17:28)
[2022-08-26] MEDS: Acetaminophen IV 1 GM/100ML 1,000 MG/100 ML BAG IV PRN (22:51)
[2022-08-27] MEDS: metroNIDAZOLE IV 500 MG/100ML 500 MG/100 ML BAG IVPB SCH ×3 (01:58→18:04)
[2022-08-27] MEDS: Cefepime 2 GM in Dextrose 2 GM/50 ML BAG IV SCH ×2 (03:10→15:33)
[2022-08-27] MEDS ORDERED: Vancomycin Trough Check NOTE FOLLOW UP ONE (05:30)
[2022-08-27 06:20] LABS: Hematocrit 23.5 % (38-53); Hemoglobin 7.5 g/dL (13.2-16.3); Mean Corpuscular Hemoglobin 26.1 pg (27-33); Mean Corpuscular Volume 81.5 fL (80-97); Mean Platelet Volume 6.8 fL (7.5-11.2); Platelet Count 297 10^3/uL (150-450); Red Blood Count 2.88 10^6/uL (4.06-5.63); Red Cell Distribution Width 19.1 % (12-17); White Blood Count 6.1 10^3/uL (3.6-10.2)
[2022-08-27 06:22] LABS: INR 3.61 (0.88-1.18)
[2022-08-27 06:41] LABS: ABS Eosinophils 0.2 10^3/uL (0.0-0.5); ABS Lymphocytes 0.8 10^3/uL (1.0-4.8); ABS Monocytes 0.6 10^3/uL (0.0-1.1); ABS Neutrophils 4.5 10^3/uL (1.5-7.6); ABS Nucleated RBC 0.01 10^3/ul; Eosinophil % 2.8 %; Lymphocyte % 12.8 %; Nucleated Red Blood Cells % 0.2 /100 WBC (0.0-0.4)
[2022-08-27] MEDS ORDERED: Potassium Chlor 20 meq TAB.ER PO ONE (06:53)
[2022-08-27 07:02] LABS: Albumin 3.2 g/dL (3.2-5.2); Albumin/Globulin Ratio 0.9 (1-3); Calcium 7.9 mg/dL (8.6-10.3); Creatinine, Serum 0.35 mg/dL (0.67-1.17); Globulin 3.4 g/dL (2-4); Magnesium 2.2 mg/dL (1.9-2.7); Potassium 3.4 mmol/L (3.5-5.0); Total Bilirubin 0.2 mg/dL (0.2-1.0); Total Protein 6.6 g/dL (6.4-8.9); Vancomycin Trough 13.4 mcg/mL; eGFR CKD-EPI 122.2 (>60)
[2022-08-27] MEDS: Valproic Acid LIQ 250 MG/5 ML UDC PO SCH ×2 (09:27→18:04)
[2022-08-27] MEDS: Potassium Chloride LIQUID 20 MEQ/15 ML LIQUID PO SCH (09:27)
[2022-08-27] MEDS: Cholecalciferol (VIT D3) 1,000 unit TAB PO SCH (09:28)
[2022-08-27] MEDS: Vancomycin 1000 MG in NS 0.9% 250 ML IVPB SCH ×3 (10:08→22:51)
[2022-08-27] MEDS ORDERED: Potassium Chloride LIQUID 20 MEQ/15 ML LIQUID PO ONE (16:00)
[2022-08-27] MEDS ORDERED: Warfarin - No Order Today **NOTE FOLLOW UP ONE (17:00)
[2022-08-27] MEDS: Warfarin DAILY REMINDER **NOTE FOLLOW UP SCH (18:04)
[2022-08-27] MEDS: Acetaminophen IV 1 GM/100ML 1,000 MG/100 ML BAG IV PRN (21:07)
[2022-08-27] MEDS: Collagenase 250 units/gm OINT 1 tube TOPICAL SCH (23:18)
[2022-08-28] MEDS: metroNIDAZOLE IV 500 MG/100ML 500 MG/100 ML BAG IVPB SCH ×2 (01:59→10:13)
[2022-08-28] MEDS: Cefepime 2 GM in Dextrose 2 GM/50 ML BAG IV SCH ×2 (03:38→15:48)
[2022-08-28 05:50] LABS: Hematocrit 24.1 % (38-53); Hemoglobin 7.8 g/dL (13.2-16.3); Mean Corpuscular Hemoglobin 26.2 pg (27-33); Mean Corpuscular Hgb Conc 32.1 g/dL (31-36); Mean Corpuscular Volume 81.7 fL (80-97); Platelet Count 311 10^3/uL (150-450); Red Blood Count 2.96 10^6/uL (4.06-5.63); Red Cell Distribution Width 19.3 % (12-17); White Blood Count 7.8 10^3/uL (3.6-10.2)
[2022-08-28] MEDS: Vancomycin 1000 MG in NS 0.9% 250 ML IVPB SCH ×2 (06:09→13:35)
[2022-08-28 06:13] LABS: Creatinine, Serum 0.4 mg/dL (0.67-1.17); Potassium 3.6 mmol/L (3.5-5.0); eGFR CKD-EPI 117.4 (>60)
[2022-08-28] MEDS: Potassium Chloride LIQUID 20 MEQ/15 ML LIQUID PO SCH (08:41)
[2022-08-28] MEDS: Valproic Acid LIQ 250 MG/5 ML UDC PO SCH ×2 (08:41→17:31)
[2022-08-28] MEDS: Cholecalciferol (VIT D3) 1,000 unit TAB PO SCH (08:41)
[2022-08-28 10:10] LABS: INR 3.32 (0.88-1.18)
[2022-08-28 15:51] LABS: Urine Appearance Cloudy; Urine Bilirubin Negative (Negative); Urine Blood 1+ (Negative); Urine Color Yellow; Urine Glucose Negative (Negative); Urine Ketones Negative (Negative); Urine Nitrite Negative (Negative); Urine Protein 2+(100 mg/dL) (Negative); Urine Specific Gravity 1.012 (1.002-1.030); Urine Urobilinogen Negative (Negative)
[2022-08-28 16:03] LABS: Urine Bacteria 1+ (Absent); Urine Red Blood Cell 3+(>10/hpf) (Absent); Urine Squamous Epithelial Cell Present (Absent); Urine White Blood Cell 3+(>20/hpf) (Absent)
[2022-08-28] MEDS: Linezolid 600 MG IVPREMIX(*) 600 MG/300 ML BAG IVPB SCH (16:40)
[2022-08-28] MEDS ORDERED: Warfarin - No Order Today **NOTE FOLLOW UP ONE (17:00)
[2022-08-28] MEDS: Warfarin DAILY REMINDER **NOTE FOLLOW UP SCH (17:08)
[2022-08-29] MEDS: Linezolid 600 MG IVPREMIX(*) 600 MG/300 ML BAG IVPB SCH ×2 (01:58→13:45)
[2022-08-29] MEDS: Cefepime 2 GM in Dextrose 2 GM/50 ML BAG IV SCH ×2 (03:14→17:10)
[2022-08-29] MEDS ORDERED: Vancomycin Trough Check NOTE FOLLOW UP ONE (05:30)
[2022-08-29 05:36] LABS: ABS Basophils 0.1 10^3/uL (0.0-0.1); ABS Eosinophils 0.2 10^3/uL (0.0-0.5); ABS Lymphocytes 1.2 10^3/uL (1.0-4.8); ABS Monocytes 0.9 10^3/uL (0.0-1.1); ABS Neutrophils 6.7 10^3/uL (1.5-7.6); ABS Nucleated RBC 0.01 10^3/ul; Eosinophil % 2.2 %; Hemoglobin 7.7 g/dL (13.2-16.3); Lymphocyte % 13.6 %; Mean Corpuscular Hgb Conc 32.2 g/dL (31-36); Mean Corpuscular Volume 80.7 fL (80-97); Mean Platelet Volume 6.7 fL (7.5-11.2); Nucleated Red Blood Cells % 0.2 /100 WBC (0.0-0.4); Platelet Count 337 10^3/uL (150-450); Red Blood Count 2.97 10^6/uL (4.06-5.63); Red Cell Distribution Width 19.2 % (12-17); White Blood Count 9.1 10^3/uL (3.6-10.2)
[2022-08-29 05:40] LABS: INR 2.27 (0.88-1.18)
[2022-08-29 06:13] LABS: Albumin 2.8 g/dL (3.2-5.2); Albumin/Globulin Ratio 0.8 (1-3); Calcium 7.9 mg/dL (8.6-10.3); Creatinine, Serum 0.33 mg/dL (0.67-1.17); Globulin 3.6 g/dL (2-4); Potassium 3.7 mmol/L (3.5-5.0); Total Bilirubin 0.2 mg/dL (0.2-1.0); Total Protein 6.4 g/dL (6.4-8.9); eGFR CKD-EPI 124.4 (>60)
[2022-08-29 08:07] LABS: C Reactive Protein 97.42 mg/L (<8.01)
[2022-08-29] MEDS: Cholecalciferol (VIT D3) 1,000 unit TAB PO SCH (11:08)
[2022-08-29] MEDS: Potassium Chloride LIQUID 20 MEQ/15 ML LIQUID PO SCH (11:08)
[2022-08-29] MEDS: Valproic Acid LIQ 250 MG/5 ML UDC PO SCH ×2 (11:09→17:22)
[2022-08-29] MEDS: Warfarin DAILY REMINDER **NOTE FOLLOW UP SCH (17:21)
[2022-08-29] MEDS: Amoxicillin/Clavul 500/125 TAB (Augmentin 500 mg tab) PO SCH (20:12)
[2022-08-30] MEDS: Linezolid 600 MG IVPREMIX(*) 600 MG/300 ML BAG IVPB SCH ×2 (02:27→14:31)
[2022-08-30 06:04] LABS: Hemoglobin 7.9 g/dL (13.2-16.3); Mean Corpuscular Hemoglobin 25.6 pg (27-33); Mean Corpuscular Hgb Conc 31.6 g/dL (31-36); Mean Platelet Volume 7.3 fL (7.5-11.2); Platelet Count 366 10^3/uL (150-450); Red Blood Count 3.09 10^6/uL (4.06-5.63); Red Cell Distribution Width 19.4 % (12-17); White Blood Count 10.7 10^3/uL (3.6-10.2)
[2022-08-30 06:11] LABS: INR 1.42 (0.88-1.18)
[2022-08-30 06:24] LABS: Calcium 8.2 mg/dL (8.6-10.3); Creatinine, Serum 0.35 mg/dL (0.67-1.17); Potassium 3.8 mmol/L (3.5-5.0); eGFR CKD-EPI 122.2 (>60)
[2022-08-30 07:36] LABS: ABS Basophils 0.2 10^3/uL (0.0-0.1); ABS Eosinophils 0.2 10^3/uL (0.0-0.5); ABS Lymphocytes 1.6 10^3/uL (1.0-4.8); ABS Monocytes 0.8 10^3/uL (0.0-1.1); ABS Neutrophils 7.8 10^3/uL (1.5-7.6); ABS Nucleated RBC 0.01 10^3/ul; Acanthocytes 1+; Anisocytosis 2+; Eosinophil % 2.1 %; Hypochromasia 2+; Lymphocyte % 15.1 %; Microcytosis 1+; Nucleated Red Blood Cells % 0.1 /100 WBC (0.0-0.4); Polychromasia 1+
[2022-08-30 07:37] LABS: Spherocytes 1+
[2022-08-30] MEDS: Potassium Chloride LIQUID 20 MEQ/15 ML LIQUID PO SCH (10:43)
[2022-08-30] MEDS: Amoxicillin/Clavul 500/125 TAB (Augmentin 500 mg tab) PO SCH ×2 (10:43→11:27)
[2022-08-30] MEDS: Valproic Acid LIQ 250 MG/5 ML UDC PO SCH ×2 (10:43→17:08)
[2022-08-30] MEDS: Cholecalciferol (VIT D3) 1,000 unit TAB PO SCH (10:44)
[2022-08-30] MEDS: Amoxicillin/Clavul ORALSYR 80 MG/ML (400 MG/5 ML) PO SCH ×2 (11:18→20:37)
[2022-08-30] MEDS: Warfarin DAILY REMINDER **NOTE FOLLOW UP SCH (17:09)
[2022-08-31] MEDS: Linezolid 600 MG IVPREMIX(*) 600 MG/300 ML BAG IVPB SCH ×2 (02:52→14:36)
[2022-08-31 05:26] LABS: Hematocrit 25.1 % (38-53); Mean Corpuscular Hemoglobin 25.1 pg (27-33); Mean Corpuscular Hgb Conc 31.7 g/dL (31-36); Mean Corpuscular Volume 79.3 fL (80-97); Mean Platelet Volume 6.7 fL (7.5-11.2); Platelet Count 392 10^3/uL (150-450); Red Blood Count 3.17 10^6/uL (4.06-5.63); Red Cell Distribution Width 19.2 % (12-17); White Blood Count 11.2 10^3/uL (3.6-10.2)
[2022-08-31 05:29] LABS: INR 1.35 (0.88-1.18)
[2022-08-31 05:56] LABS: Calcium 8.2 mg/dL (8.6-10.3); Creatinine, Serum 0.38 mg/dL (0.67-1.17); eGFR CKD-EPI 119.2 (>60)
[2022-08-31 06:23] LABS: ABS Eosinophils 0.3 10^3/uL (0.0-0.5); ABS Lymphocytes 1.6 10^3/uL (1.0-4.8); ABS Monocytes 1.1 10^3/uL (0.0-1.1); ABS Neutrophils 8.2 10^3/uL (1.5-7.6); ABS Nucleated RBC 0.01 10^3/ul; Eosinophil % 2.3 %; Lymphocyte % 13.9 %; Microcytosis 2+; Nucleated Red Blood Cells % 0.1 /100 WBC (0.0-0.4)
[2022-08-31] MEDS ORDERED: NS 0.9% 500 ml BAG 500 ML IV SCH (10:00)
[2022-08-31] MEDS: Cholecalciferol (VIT D3) 1,000 unit TAB PO SCH (10:35)
[2022-08-31] MEDS: Valproic Acid LIQ 250 MG/5 ML UDC PO SCH ×2 (10:37→18:06)
[2022-08-31] MEDS: Amoxicillin/Clavul ORALSYR 80 MG/ML (400 MG/5 ML) PO SCH ×2 (10:37→21:56)
[2022-08-31] MEDS: Potassium Chloride LIQUID 20 MEQ/15 ML LIQUID PO SCH (10:37)
[2022-08-31] MEDS: Collagenase 250 units/gm OINT 1 tube TOPICAL SCH (15:56)
[2022-08-31] MEDS: Warfarin DAILY REMINDER **NOTE FOLLOW UP SCH (18:08)
[2022-09-01] MEDS: Linezolid 600 MG IVPREMIX(*) 600 MG/300 ML BAG IVPB SCH ×2 (01:59→13:37)
[2022-09-01 06:20] LABS: Hematocrit 23.8 % (38-53); Hemoglobin 7.6 g/dL (13.2-16.3); Mean Corpuscular Hemoglobin 26.1 pg (27-33); Mean Corpuscular Hgb Conc 32.1 g/dL (31-36); Mean Corpuscular Volume 81.3 fL (80-97); Mean Platelet Volume 6.9 fL (7.5-11.2); Platelet Count 369 10^3/uL (150-450); Red Blood Count 2.93 10^6/uL (4.06-5.63); Red Cell Distribution Width 18.9 % (12-17)
[2022-09-01 06:31] LABS: INR 1.57 (0.88-1.18)
[2022-09-01 06:37] LABS: Calcium 8.1 mg/dL (8.6-10.3); Creatinine, Serum 0.36 mg/dL (0.67-1.17); Potassium 4.1 mmol/L (3.5-5.0); eGFR CKD-EPI 121.2 (>60)
[2022-09-01 07:08] LABS: ABS Basophils 0.1 10^3/uL (0.0-0.1); ABS Eosinophils 0.3 10^3/uL (0.0-0.5); ABS Lymphocytes 1.6 10^3/uL (1.0-4.8); ABS Monocytes 1.1 10^3/uL (0.0-1.1); ABS Neutrophils 5.8 10^3/uL (1.5-7.6); ABS Nucleated RBC 0.01 10^3/ul; Eosinophil % 3.3 %; Lymphocyte % 18.4 %; Nucleated Red Blood Cells % 0.1 /100 WBC (0.0-0.4)
[2022-09-01] MEDS: Cholecalciferol (VIT D3) 1,000 unit TAB PO SCH (08:57)
[2022-09-01] MEDS: Valproic Acid LIQ 250 MG/5 ML UDC PO SCH ×2 (08:57→18:04)
[2022-09-01] MEDS: Potassium Chloride LIQUID 20 MEQ/15 ML LIQUID PO SCH (08:57)
[2022-09-01] MEDS: Amoxicillin/Clavul ORALSYR 80 MG/ML (400 MG/5 ML) PO SCH ×2 (08:57→20:43)
[2022-09-01] MEDS: Warfarin DAILY REMINDER **NOTE FOLLOW UP SCH (18:09)
[2022-09-02] MEDS: Linezolid 600 MG IVPREMIX(*) 600 MG/300 ML BAG IVPB SCH (01:58)
[2022-09-02 07:54] LABS: INR 1.61 (0.88-1.18)
[2022-09-02] MEDS: Amoxicillin/Clavul ORALSYR 80 MG/ML (400 MG/5 ML) PO SCH ×2 (10:28→20:21)
[2022-09-02] MEDS: Potassium Chloride LIQUID 20 MEQ/15 ML LIQUID PO SCH (10:29)
[2022-09-02] MEDS: Cholecalciferol (VIT D3) 1,000 unit TAB PO SCH (10:29)
[2022-09-02] MEDS: Valproic Acid LIQ 250 MG/5 ML UDC PO SCH ×2 (10:29→17:12)
[2022-09-02] MEDS: Warfarin DAILY REMINDER **NOTE FOLLOW UP SCH (17:12)
[2022-09-03 07:07] LABS: INR 1.91 (0.88-1.18)
[2022-09-03] MEDS: Potassium Chloride LIQUID 20 MEQ/15 ML LIQUID PO SCH (09:33)
[2022-09-03] MEDS: Valproic Acid LIQ 250 MG/5 ML UDC PO SCH (09:33)
[2022-09-03] MEDS: Cholecalciferol (VIT D3) 1,000 unit TAB PO SCH (09:34)
[2022-09-03] MEDS: Amoxicillin/Clavul ORALSYR 80 MG/ML (400 MG/5 ML) PO SCH (09:34)
[2022-09-03 10:35] LABS: Rapid COVID-19 Molecular Undetected (Undetected)
[2022-09-03 14:08] VITALS: BP 143/93
== END 2022-09-03 16:00 | DRG 981 ==
LOC: ED 11:50 → SUATTDRO 20:16 → EDHOLD 20:16 → MED 08-09 11:44
PROVIDERS: ADMIT Student in an Organized Health Care Education/Training Program; ATTEND Internal Medicine

== ENCOUNTER 2022-09-23 13:44 | Inpatient (IN) ==
[2022-09-23 14:24] LABS: Hematocrit 26.2 % (38-53); Hemoglobin 7.6 g/dL (13.2-16.3); Mean Corpuscular Hemoglobin 24.2 pg (27-33); Mean Corpuscular Hgb Conc 29.1 g/dL (31-36); Mean Corpuscular Volume 83.1 fL (80-97); Mean Platelet Volume 9.1 fL (7.5-11.2); Platelet Count 300 10^3/uL (150-450); Red Blood Count 3.15 10^6/uL (4.06-5.63); Red Cell Distribution Width 20.5 % (12-17); White Blood Count 8.9 10^3/uL (3.6-10.2)
[2022-09-23 14:42] LABS: Albumin 2.7 g/dL (3.2-5.2); Albumin/Globulin Ratio 0.5 (1-3); Calcium 8.5 mg/dL (8.6-10.3); Creatinine, Serum 1.2 mg/dL (0.67-1.17); Globulin 5.2 g/dL (2-4); Potassium 3.7 mmol/L (3.5-5.0); Total Bilirubin 0.2 mg/dL (0.2-1.0); Total Protein 7.9 g/dL (6.4-8.9); eGFR CKD-EPI 65.1 (>60)
[2022-09-23 14:47] LABS: Rouleaux 1+
[2022-09-23 14:48] LABS: ABS Eosinophils 0.1 10^3/uL (0.0-0.5); ABS Monocytes 0.3 10^3/uL (0.0-1.1); ABS Neutrophils 6.5 10^3/uL (1.5-7.6); ABS Nucleated RBC 0.01 10^3/ul; Eosinophil % 1.5 %; Lymphocyte % 22.2 %; Nucleated Red Blood Cells % 0.1 /100 WBC (0.0-0.4)
[2022-09-23 15:03] LABS: Urine Appearance Cloudy; Urine Bilirubin Negative (Negative); Urine Blood 2+ (Negative); Urine Color Yellow; Urine Glucose Negative (Negative); Urine Ketones Negative (Negative); Urine Nitrite Negative (Negative); Urine Protein 1+(30 mg/dL) (Negative); Urine Specific Gravity 1.018 (1.002-1.030); Urine Urobilinogen Negative (Negative)
[2022-09-23] MEDS ORDERED: cefTRIAXone 1 gm/50 mL D5W 1 GM/50 ML BAG IV ONE (15:03)
[2022-09-23] MEDS ORDERED: Lactated Ringers 1000 ml BAG 1,000 ML IV ONE (15:03)
[2022-09-23] MEDS ORDERED: Vancomycin 1,500 MG in NS 0.9% 250 ml 250 ML IVPB ONE (15:44)
[2022-09-23 15:49] LABS: INR 2.79 (0.88-1.18)
[2022-09-23] MEDS ORDERED: Iohexol 350 (CONTRAST) 500 ML MDV IV ONE (15:51)
[2022-09-23 16:24] LABS: Urine Bacteria Absent (Absent); Urine Red Blood Cell 3+(>10/hpf) (Absent); Urine White Blood Cell 2+(11-20/hpf) (Absent); Urine Yeast Present (Absent)
[2022-09-23] MEDS ORDERED: Warfarin - No Order Today **NOTE FOLLOW UP ONE (17:00)
[2022-09-23 17:14] LABS: Albumin 2.6 g/dL (3.2-5.2); Albumin/Globulin Ratio 0.5 (1-3); Calcium 8.3 mg/dL (8.6-10.3); Creatinine, Serum 1.13 mg/dL (0.67-1.17); Globulin 5.1 g/dL (2-4); Potassium 3.6 mmol/L (3.5-5.0); Total Bilirubin 0.2 mg/dL (0.2-1.0); Total Protein 7.7 g/dL (6.4-8.9); eGFR CKD-EPI 69.9 (>60)
[2022-09-23] MEDS ORDERED: D5W 1000 ml BAG 1,000 ML IV SCH (19:00)
[2022-09-23] MEDS ORDERED: Warfarin per PHARMACY **NOTE FOLLOW UP SCH (19:00)
[2022-09-23] MEDS ORDERED: Vancomycin per Pharmacy 1 EA NOTE FOLLOW UP SCH (19:00)
[2022-09-23 19:32] LABS: Calcium 7.8 mg/dL (8.6-10.3); Creatinine, Serum 1.04 mg/dL (0.67-1.17); Potassium 3.7 mmol/L (3.5-5.0); eGFR CKD-EPI 77.2 (>60)
[2022-09-23] MEDS ORDERED: Dextrose 50% Syringe 50 ml 25 GM/50 ML SYRINGE IV PUSH PRN (19:33)
[2022-09-23 19:38] LABS: Urine Osmo 541 mOsm/kg (150-1150)
[2022-09-23 19:45] LABS: Osmolality Serum 361 mOsm/kg (275-295)
[2022-09-23] MEDS ORDERED: Hydrocortisone INJ 100 MG VIAL ONE (20:20)
[2022-09-23] MEDS: Azithromycin 500 mg/250 ml NS 500 MG/250 ML BAG IVPB SCH (20:23)
[2022-09-23] MEDS: Hydrocortisone INJ 100 MG VIAL IV SCH (20:23)
[2022-09-23] MEDS: Valproic Acid LIQ 250 MG/5 ML UDC PO SCH (22:00)
[2022-09-23] MEDS: Pantoprazole VIAL 40 MG VIAL IV SCH (22:00)
[2022-09-24 00:10] LABS: Sodium 160 mmol/L (135-145)
[2022-09-24 00:11] LABS: Blood Urea Nitrogen 34 mg/dL (6-24); CO2 Carbon Dioxide 27 mmol/L (22-32); Calcium 7.3 mg/dL (8.6-10.3); Chloride 132 mmol/L (101-111); Creatinine, Serum 0.99 mg/dL (0.67-1.17); Glucose 133 mg/dL (70-100)
[2022-09-24] MEDS ORDERED: NS 0.9% 250 ml 250 ML IV ONE (01:21)
[2022-09-24 03:28] LABS: Blood Urea Nitrogen 33 mg/dL (6-24); CO2 Carbon Dioxide 26 mmol/L (22-32); Calcium 7.6 mg/dL (8.6-10.3); Creatinine, Serum 0.94 mg/dL (0.67-1.17); Glucose 132 mg/dL (70-100); eGFR CKD-EPI 87.2 (>60)
[2022-09-24 03:31] LABS: Sodium 165 mmol/L (135-145)
[2022-09-24] MEDS: Norepinephrine 16MCG/ML BAGD5W 4,000 MCG/250 ML BAG IV SCH ×2 (03:52→20:46)
[2022-09-24 04:23] LABS: Chloride 135 mmol/L (101-111)
[2022-09-24] MEDS: Vancomycin 1000 MG in NS 0.9% 250 ML IVPB SCH ×2 (04:26→17:45)
[2022-09-24] MEDS: Hydrocortisone INJ 100 MG VIAL IV SCH (05:42)
[2022-09-24 05:56] LABS: Calcium 7.8 mg/dL (8.6-10.3); Creatinine, Serum 0.85 mg/dL (0.67-1.17); Potassium 4.1 mmol/L (3.5-5.0); eGFR CKD-EPI 93.5 (>60)
[2022-09-24] MEDS ORDERED: D5W 1000 ml BAG 1,000 ML IV SCH ×3 (09:00→17:53)
[2022-09-24] MEDS: Morphine 2 MG/ML SYRINGE IV PRN ×3 (09:10→22:46)
[2022-09-24 09:45] LABS: ABS Lymphocytes 1.1 10^3/uL (1.0-4.8); ABS Monocytes 0.3 10^3/uL (0.0-1.1); ABS Neutrophils 7.3 10^3/uL (1.5-7.6); ABS Nucleated RBC 0.02 10^3/ul; Eosinophil % 0.2 %; Hematocrit 24.3 % (38-53); Hemoglobin 7.1 g/dL (13.2-16.3); Mean Corpuscular Hgb Conc 29.3 g/dL (31-36); Mean Corpuscular Volume 82.1 fL (80-97); Mean Platelet Volume 9.6 fL (7.5-11.2); Nucleated Red Blood Cells % 0.2 /100 WBC (0.0-0.4); Platelet Count 261 10^3/uL (150-450); Red Blood Count 2.96 10^6/uL (4.06-5.63); Red Cell Distribution Width 20.1 % (12-17); White Blood Count 8.7 10^3/uL (3.6-10.2)
[2022-09-24 09:51] LABS: INR 2.54 (0.88-1.18)
[2022-09-24 10:10] LABS: Calcium 8.2 mg/dL (8.6-10.3); Creatinine, Serum 0.88 mg/dL (0.67-1.17); Potassium 3.4 mmol/L (3.5-5.0); eGFR CKD-EPI 92.5 (>60)
[2022-09-24] MEDS ORDERED: Hydrocortisone INJ 100 MG VIAL IV SCH (13:00)
[2022-09-24] MEDS ORDERED: cefTRIAXone 1 gm/50 mL D5W 1 GM/50 ML BAG IV SCH (15:00)
[2022-09-24] MEDS ORDERED: Piperacillin/Tazobac ADVAN 3.375 GM in NS 0.9% 100 ml BAG 100 ML IV ONE (16:19)
[2022-09-24] MEDS ORDERED: Zosyn per Pharmacy NOTE FOLLOW UP SCH (17:00)
[2022-09-24 17:03] LABS: Calcium 7.9 mg/dL (8.6-10.3); Potassium 3.4 mmol/L (3.5-5.0)
[2022-09-24 17:09] LABS: Creatinine, Serum 0.9 mg/dL (0.67-1.17); eGFR CKD-EPI 91.9 (>60)
[2022-09-24] MEDS: Valproic Acid LIQ 250 MG/5 ML UDC PO SCH (17:16)
[2022-09-24] MEDS: Azithromycin 500 mg/250 ml NS 500 MG/250 ML BAG IVPB SCH (17:45)
[2022-09-24] MEDS: ZOSYN 3.375 GM Q8H per EXTENDED INFUSION IV SCH (23:02)
[2022-09-24] MEDS: Pantoprazole VIAL 40 MG VIAL IV SCH (23:02)
[2022-09-24 23:15] LABS: Calcium 7.4 mg/dL (8.6-10.3); Creatinine, Serum 0.89 mg/dL (0.67-1.17); eGFR CKD-EPI 92.2 (>60)
[2022-09-25 02:14] LABS: Calcium 7.2 mg/dL (8.6-10.3); Creatinine, Serum 0.84 mg/dL (0.67-1.17); eGFR CKD-EPI 93.8 (>60)
[2022-09-25 02:17] LABS: Potassium 3.2 mmol/L (3.5-5.0)
[2022-09-25] MEDS ORDERED: D5W 1000 ml BAG 1,000 ML IV SCH ×5 (02:24→22:08)
[2022-09-25] MEDS ORDERED: Potassium Chlor 20 meq TAB.ER PO ONE (02:50)
[2022-09-25] MEDS: Vancomycin 1000 MG in NS 0.9% 250 ML IVPB SCH ×2 (05:08→17:24)
[2022-09-25] MEDS: ZOSYN 3.375 GM Q8H per EXTENDED INFUSION IV SCH ×3 (05:10→21:32)
[2022-09-25 05:31] LABS: ABS Lymphocytes 1.3 10^3/uL (1.0-4.8); ABS Monocytes 0.3 10^3/uL (0.0-1.1); ABS Neutrophils 4.4 10^3/uL (1.5-7.6); ABS Nucleated RBC 0.02 10^3/ul; Eosinophil % 0.6 %; Hematocrit 22.2 % (38-53); Hemoglobin 6.6 g/dL (13.2-16.3); Lymphocyte % 21.9 %; Mean Corpuscular Hemoglobin 24.6 pg (27-33); Mean Corpuscular Hgb Conc 29.8 g/dL (31-36); Mean Corpuscular Volume 82.5 fL (80-97); Mean Platelet Volume 9.9 fL (7.5-11.2); Nucleated Red Blood Cells % 0.4 /100 WBC (0.0-0.4); Platelet Count 225 10^3/uL (150-450); Red Blood Count 2.69 10^6/uL (4.06-5.63); Red Cell Distribution Width 20.1 % (12-17)
[2022-09-25 05:46] LABS: Calcium 7.7 mg/dL (8.6-10.3); Creatinine, Serum 0.91 mg/dL (0.67-1.17); INR 3.36 (0.88-1.18); Magnesium 2.2 mg/dL (1.9-2.7); eGFR CKD-EPI 90.7 (>60)
[2022-09-25 05:48] LABS: Potassium 4.5 mmol/L (3.5-5.0)
[2022-09-25 10:18] LABS: Calcium 7.7 mg/dL (8.6-10.3); Creatinine, Serum 0.9 mg/dL (0.67-1.17); Potassium 3.2 mmol/L (3.5-5.0); eGFR CKD-EPI 91.9 (>60)
[2022-09-25] MEDS: Morphine 2 MG/ML SYRINGE IV PRN ×2 (11:51→20:35)
[2022-09-25] MEDS ORDERED: Vancomycin Trough Check NOTE FOLLOW UP ONE (15:30)
[2022-09-25 16:27] LABS: Calcium 7.7 mg/dL (8.6-10.3); Creatinine, Serum 0.86 mg/dL (0.67-1.17); Potassium 3.3 mmol/L (3.5-5.0); eGFR CKD-EPI 93.1 (>60)
[2022-09-25] MEDS ORDERED: Warfarin - No Order Today **NOTE FOLLOW UP ONE (17:00)
[2022-09-25] MEDS: Valproic Acid LIQ 250 MG/5 ML UDC PO SCH (18:13)
[2022-09-25] MEDS: Azithromycin 500 mg/250 ml NS 500 MG/250 ML BAG IVPB SCH (18:25)
[2022-09-25 20:09] LABS: Blood Urea Nitrogen 30 mg/dL (6-24); CO2 Carbon Dioxide 19 mmol/L (22-32); Calcium 7.2 mg/dL (8.6-10.3); Glucose 200 mg/dL (70-100); eGFR CKD-EPI 91.9 (>60)
[2022-09-25 20:14] LABS: Chloride 131 mmol/L (101-111)
[2022-09-25 20:23] LABS: Anion Gap 8 mmol/L (2-16); Sodium 158 mmol/L (135-145)
[2022-09-25] MEDS: Pantoprazole VIAL 40 MG VIAL IV SCH (20:59)
[2022-09-25] MEDS: Vancomycin 750 MG in NS 0.9% 250 ML IVPB SCH (21:32)
[2022-09-25 23:50] LABS: Calcium 6.8 mg/dL (8.6-10.3); Creatinine, Serum 0.88 mg/dL (0.67-1.17); eGFR CKD-EPI 92.5 (>60)
[2022-09-25 23:55] LABS: Potassium 4.7 mmol/L (3.5-5.0)
[2022-09-26] MEDS: D5W 1000 ml BAG 1,000 ML IV SCH ×2 (00:55→23:19)
[2022-09-26 03:10] LABS: Calcium 7.4 mg/dL (8.6-10.3); Creatinine, Serum 0.97 mg/dL (0.67-1.17); Potassium 3.4 mmol/L (3.5-5.0)
[2022-09-26] MEDS: ZOSYN 3.375 GM Q8H per EXTENDED INFUSION IV SCH ×4 (06:11→21:48)
[2022-09-26] MEDS ORDERED: Potassium Chloride LIQUID 20 MEQ/15 ML LIQUID PO SCH (07:00)
[2022-09-26 07:20] LABS: ABS Eosinophils 0.3 10^3/uL (0.0-0.5); ABS Lymphocytes 1.8 10^3/uL (1.0-4.8); ABS Monocytes 0.4 10^3/uL (0.0-1.1); ABS Neutrophils 7.2 10^3/uL (1.5-7.6); ABS Nucleated RBC 0.07 10^3/ul; Hematocrit 26.7 % (38-53); Hemoglobin 8.1 g/dL (13.2-16.3); Lymphocyte % 18.4 %; Mean Corpuscular Hgb Conc 30.2 g/dL (31-36); Mean Corpuscular Volume 79.4 fL (80-97); Mean Platelet Volume 10.1 fL (7.5-11.2); Nucleated Red Blood Cells % 0.7 /100 WBC (0.0-0.4); Platelet Count 187 10^3/uL (150-450); Red Blood Count 3.37 10^6/uL (4.06-5.63); White Blood Count 9.7 10^3/uL (3.6-10.2)
[2022-09-26 07:27] LABS: INR 4.06 (0.88-1.18)
[2022-09-26 07:42] LABS: Calcium 7.5 mg/dL (8.6-10.3); Creatinine, Serum 0.88 mg/dL (0.67-1.17); Magnesium 1.9 mg/dL (1.9-2.7); Phosphorus 2.2 mg/dL (2.5-5.0); Potassium 3.5 mmol/L (3.5-5.0); eGFR CKD-EPI 92.5 (>60)
[2022-09-26] MEDS ORDERED: Potassium Phosphate IV 5 MMOL in NS 0.9% 250 ml 250 ML IVPB ONE ×2 (08:39→15:00)
[2022-09-26 12:22] LABS: Calcium 7.6 mg/dL (8.6-10.3); Creatinine, Serum 0.81 mg/dL (0.67-1.17); Potassium 3.7 mmol/L (3.5-5.0); eGFR CKD-EPI 94.9 (>60)
[2022-09-26] MEDS ORDERED: LORazepam 2 mg VIAL 1 ml IV PUSH ONE (12:39)
[2022-09-26] MEDS ORDERED: Lorazepam PYXIS KEY PRN (12:39)
[2022-09-26] MEDS ORDERED: Lidocaine 1% VIAL 10 MG/ML VIAL 30 ML INJ ONE (13:19)
[2022-09-26] MEDS ORDERED: Lidocaine 1% VIAL 10 MG/ML VIAL 30 ML ONE (13:20)
[2022-09-26] MEDS: Vancomycin 750 MG in NS 0.9% 250 ML IVPB SCH ×3 (15:35→16:45)
[2022-09-26 15:50] LABS: Calcium 7.6 mg/dL (8.6-10.3); Creatinine, Serum 0.77 mg/dL (0.67-1.17); Potassium 3.4 mmol/L (3.5-5.0); eGFR CKD-EPI 96.3 (>60)
[2022-09-26] MEDS ORDERED: Warfarin - No Order Today **NOTE FOLLOW UP ONE (17:00)
[2022-09-26] MEDS ORDERED: CALCIUM GLUCONATE 1GM/50ML NS 1 GM/50 ML BAG IV ONE (17:35)
[2022-09-26] MEDS: Valproic Acid LIQ 250 MG/5 ML UDC PO SCH (17:46)
[2022-09-26] MEDS ORDERED: Potassium Chloride LIQUID 20 MEQ/15 ML LIQUID PO ONE (18:01)
[2022-09-26 20:16] LABS: Calcium 7.8 mg/dL (8.6-10.3); Creatinine, Serum 0.73 mg/dL (0.67-1.17); Potassium 3.5 mmol/L (3.5-5.0); eGFR CKD-EPI 97.9 (>60)
[2022-09-26] MEDS: Pantoprazole VIAL 40 MG VIAL IV SCH (21:49)
[2022-09-27] MEDS: Vancomycin 750 MG in NS 0.9% 250 ML IVPB SCH ×2 (03:00→16:26)
[2022-09-27 05:45] LABS: ABS Basophils 0.1 10^3/uL (0.0-0.1); ABS Eosinophils 0.2 10^3/uL (0.0-0.5); ABS Lymphocytes 1.4 10^3/uL (1.0-4.8); ABS Monocytes 0.4 10^3/uL (0.0-1.1); ABS Nucleated RBC 0.03 10^3/ul; Eosinophil % 1.6 %; Hematocrit 22.8 % (38-53); Hemoglobin 7.2 g/dL (13.2-16.3); Lymphocyte % 13.7 %; Mean Corpuscular Hemoglobin 23.9 pg (27-33); Mean Corpuscular Hgb Conc 31.6 g/dL (31-36); Mean Corpuscular Volume 75.6 fL (80-97); Mean Platelet Volume 9.1 fL (7.5-11.2); Nucleated Red Blood Cells % 0.3 /100 WBC (0.0-0.4); Platelet Count 177 10^3/uL (150-450); Red Blood Count 3.02 10^6/uL (4.06-5.63)
[2022-09-27 05:51] LABS: INR 2.64 (0.88-1.18)
[2022-09-27 06:03] LABS: Magnesium 1.8 mg/dL (1.9-2.7); Phosphorus 3.3 mg/dL (2.5-5.0)
[2022-09-27] MEDS: D5W 1000 ml BAG 1,000 ML IV SCH ×3 (06:14→20:31)
[2022-09-27] MEDS: ZOSYN 3.375 GM Q8H per EXTENDED INFUSION IV SCH (06:17)
[2022-09-27 08:09] LABS: Calcium 7.5 mg/dL (8.6-10.3); Creatinine, Serum 0.73 mg/dL (0.67-1.17); Magnesium 1.7 mg/dL (1.9-2.7); Potassium 3.6 mmol/L (3.5-5.0); eGFR CKD-EPI 97.9 (>60)
[2022-09-27] MEDS ORDERED: Vancomycin Trough Check NOTE FOLLOW UP ONE (14:00)
[2022-09-27] MEDS: Cefepime 2 GM in Dextrose 2 GM/50 ML BAG IV SCH (14:05)
[2022-09-27] MEDS ORDERED: Phytonadione IV (Adult) 5 MG in NS 0.9% 50 ML 50 ML IV ONE (14:43)
[2022-09-27 16:35] LABS: Calcium 7.4 mg/dL (8.6-10.3); Creatinine, Serum 0.73 mg/dL (0.67-1.17); Potassium 3.4 mmol/L (3.5-5.0); eGFR CKD-EPI 97.9 (>60)
[2022-09-27] MEDS: Valproic Acid LIQ 250 MG/5 ML UDC PO SCH (18:08)
[2022-09-27] MEDS: Pantoprazole VIAL 40 MG VIAL IV SCH (20:32)
[2022-09-28] MEDS: D5W 1000 ml BAG 1,000 ML IV SCH (02:42)
[2022-09-28] MEDS: Cefepime 2 GM in Dextrose 2 GM/50 ML BAG IV SCH ×2 (02:42→14:17)
[2022-09-28] MEDS: Vancomycin 750 MG in NS 0.9% 250 ML IVPB SCH ×3 (02:54→23:57)
[2022-09-28 06:24] LABS: Mean Platelet Volume 9.9 fL (7.5-11.2); Platelet Count 164 10^3/uL (150-450)
[2022-09-28 06:30] LABS: INR 1.5 (0.88-1.18)
[2022-09-28 07:54] LABS: ABS Basophils 0.1 10^3/uL (0.0-0.1); ABS Eosinophils 0.3 10^3/uL (0.0-0.5); ABS Lymphocytes 1.6 10^3/uL (1.0-4.8); ABS Monocytes 0.5 10^3/uL (0.0-1.1); ABS Neutrophils 7.8 10^3/uL (1.5-7.6); ABS Nucleated RBC 0.03 10^3/ul; Hematocrit 22.4 % (38-53); Hemoglobin 6.9 g/dL (13.2-16.3); Lymphocyte % 15.5 %; Mean Corpuscular Hemoglobin 23.9 pg (27-33); Mean Corpuscular Hgb Conc 30.9 g/dL (31-36); Mean Corpuscular Volume 77.4 fL (80-97); Mean Platelet Volume 10.3 fL (7.5-11.2); Nucleated Red Blood Cells % 0.3 /100 WBC (0.0-0.4); Platelet Count 163 10^3/uL (150-450); Red Blood Count 2.89 10^6/uL (4.06-5.63); White Blood Count 10.2 10^3/uL (3.6-10.2)
[2022-09-28 08:03] LABS: Creatinine, Serum 0.68 mg/dL (0.67-1.17); Magnesium 1.7 mg/dL (1.9-2.7)
[2022-09-28] MEDS: NS 0.9% 1000 ml BAG 1,000 ML IV SCH (10:17)
[2022-09-28] MEDS ORDERED: Vancomycin Trough Check NOTE FOLLOW UP ONE (14:30)
[2022-09-28] MEDS ORDERED: fentaNYL 100 mcg/2 ml 50 MCG/ML VIAL ONE (16:13)
[2022-09-28] MEDS ORDERED: Bupivacaine 0.5% PF 10 ML SDV VIAL INJ ONE ×2 (16:13→16:39)
[2022-09-28] MEDS ORDERED: Midazolam 2 mg/2 ml VIAL 1 mg/ml 2 ml VIAL (2 mg) ONE (16:13)
[2022-09-28] MEDS ORDERED: Bupivacaine 0.25% SDV PF 10 ML VIAL INJ ONE (16:16)
[2022-09-28] MEDS ORDERED: Lidocaine 2% JELLY 6 ML Topical TOPICAL ONE (16:29)
[2022-09-28] MEDS ORDERED: Lidocaine 4% CREAM (LMX) 5 GM TUBE TOPICAL ONE (16:29)
[2022-09-28] MEDS ORDERED: Glucagon 1 mg VIAL KIT ONE (16:34)
[2022-09-28] MEDS: Valproic Acid LIQ 250 MG/5 ML UDC PO SCH (20:34)
[2022-09-28 21:06] LABS: Hematocrit 24.5 % (38-53); Hemoglobin 7.9 g/dL (13.2-16.3)
[2022-09-28 21:23] LABS: Calcium 7.1 mg/dL (8.6-10.3); Creatinine, Serum 0.63 mg/dL (0.67-1.17); Potassium 2.9 mmol/L (3.5-5.0); eGFR CKD-EPI 102.3 (>60)
[2022-09-28] MEDS: Pantoprazole VIAL 40 MG VIAL IV SCH (23:51)
[2022-09-29] MEDS: NS 0.9% 1000 ml BAG 1,000 ML IV SCH ×2 (01:59→18:07)
[2022-09-29] MEDS: Cefepime 2 GM in Dextrose 2 GM/50 ML BAG IV SCH ×2 (02:58→13:54)
[2022-09-29] MEDS: KCL 20 MEQ/100 ML IVPREMIX 20 MEQ/100 ML BAG IV SCH ×4 (03:46→13:54)
[2022-09-29 06:08] LABS: ABS Eosinophils 0.3 10^3/uL (0.0-0.5); ABS Monocytes 0.4 10^3/uL (0.0-1.1); ABS Neutrophils 5.3 10^3/uL (1.5-7.6); ABS Nucleated RBC 0.02 10^3/ul; Eosinophil % 4.7 %; Hematocrit 24.5 % (38-53); Hemoglobin 7.8 g/dL (13.2-16.3); Lymphocyte % 14.6 %; Mean Corpuscular Hgb Conc 31.8 g/dL (31-36); Mean Corpuscular Volume 75.6 fL (80-97); Mean Platelet Volume 9.7 fL (7.5-11.2); Nucleated Red Blood Cells % 0.3 /100 WBC (0.0-0.4); Platelet Count 160 10^3/uL (150-450); Red Blood Count 3.24 10^6/uL (4.06-5.63); Red Cell Distribution Width 20.1 % (12-17); White Blood Count 7.2 10^3/uL (3.6-10.2)
[2022-09-29 06:27] LABS: Creatinine, Serum 0.62 mg/dL (0.67-1.17); Magnesium 1.8 mg/dL (1.9-2.7); Potassium 3.1 mmol/L (3.5-5.0); eGFR CKD-EPI 102.8 (>60)
[2022-09-29] MEDS ORDERED: Magnesium Sulfate 2 gm BAG 2 GM/50 ML BAG IVPB ONE (07:56)
[2022-09-29] MEDS: Dextrose 50% Syringe 50 ml 25 GM/50 ML SYRINGE IV PUSH PRN ×2 (09:16→21:38)
[2022-09-29] MEDS: Vancomycin 750 MG in NS 0.9% 250 ML IVPB SCH ×2 (11:15→22:44)
[2022-09-29 13:53] LABS: INR 1.13 (0.88-1.18)
[2022-09-29 14:36] LABS: Rapid COVID-19 Molecular Undetected (Undetected)
[2022-09-29] MEDS: Warfarin DAILY REMINDER **NOTE FOLLOW UP SCH (17:38)
[2022-09-29] MEDS: Valproic Acid LIQ 250 MG/5 ML UDC PO SCH (17:50)
[2022-09-29] MEDS: Enoxaparin 100 MG/ML SYR SUBCUT SCH (17:50)
[2022-09-29] MEDS: Warfarin per PHARMACY **NOTE FOLLOW UP SCH (17:53)
[2022-09-29] MEDS: Pantoprazole VIAL 40 MG VIAL IV SCH (21:27)
[2022-09-30] MEDS: Cefepime 2 GM in Dextrose 2 GM/50 ML BAG IV SCH ×2 (01:11→14:08)
[2022-09-30] MEDS: Enoxaparin 100 MG/ML SYR SUBCUT SCH ×2 (04:47→18:15)
[2022-09-30 06:35] LABS: Hematocrit 23.3 % (38-53); Hemoglobin 7.5 g/dL (13.2-16.3); Mean Corpuscular Hemoglobin 24.4 pg (27-33); Mean Corpuscular Hgb Conc 32.2 g/dL (31-36); Mean Platelet Volume 9.5 fL (7.5-11.2); Platelet Count 193 10^3/uL (150-450); Red Blood Count 3.06 10^6/uL (4.06-5.63); Red Cell Distribution Width 19.9 % (12-17); White Blood Count 6.5 10^3/uL (3.6-10.2)
[2022-09-30 06:39] LABS: INR 1.24 (0.88-1.18)
[2022-09-30 06:51] LABS: ABS Eosinophils 0.3 10^3/uL (0.0-0.5); ABS Lymphocytes 1.4 10^3/uL (1.0-4.8); ABS Monocytes 0.4 10^3/uL (0.0-1.1); ABS Neutrophils 4.4 10^3/uL (1.5-7.6); ABS Nucleated RBC 0.03 10^3/ul; Lymphocyte % 20.9 %; Nucleated Red Blood Cells % 0.4 /100 WBC (0.0-0.4)
[2022-09-30 06:54] LABS: Calcium 6.5 mg/dL (8.6-10.3); Creatinine, Serum 0.49 mg/dL (0.67-1.17); Magnesium 1.9 mg/dL (1.9-2.7); Potassium 2.8 mmol/L (3.5-5.0); eGFR CKD-EPI 110.4 (>60)
[2022-09-30] MEDS: NS 0.9% 1000 ml BAG 1,000 ML IV SCH ×2 (07:47→21:20)
[2022-09-30] MEDS ORDERED: Vancomycin Trough Check NOTE FOLLOW UP ONE (10:30)
[2022-09-30] MEDS: Vancomycin 750 MG in NS 0.9% 250 ML IVPB SCH ×2 (12:23→23:04)
[2022-09-30] MEDS: Warfarin DAILY REMINDER **NOTE FOLLOW UP SCH (18:16)
[2022-09-30] MEDS: Warfarin per PHARMACY **NOTE FOLLOW UP SCH (18:16)
[2022-09-30] MEDS: Valproic Acid LIQ 250 MG/5 ML UDC PO SCH (18:20)
[2022-09-30] MEDS: Pantoprazole VIAL 40 MG VIAL IV SCH (21:08)
[2022-10-01] MEDS: Cefepime 2 GM in Dextrose 2 GM/50 ML BAG IV SCH ×2 (01:54→16:24)
[2022-10-01] MEDS: Enoxaparin 100 MG/ML SYR SUBCUT SCH ×2 (04:55→16:25)
[2022-10-01 05:15] LABS: Hematocrit 25.1 % (38-53); Hemoglobin 7.9 g/dL (13.2-16.3); Mean Corpuscular Hemoglobin 24.6 pg (27-33); Mean Corpuscular Hgb Conc 31.6 g/dL (31-36); Mean Corpuscular Volume 77.8 fL (80-97); Mean Platelet Volume 8.8 fL (7.5-11.2); Platelet Count 212 10^3/uL (150-450); Red Blood Count 3.23 10^6/uL (4.06-5.63); White Blood Count 6.3 10^3/uL (3.6-10.2)
[2022-10-01 05:31] LABS: Creatinine, Serum 0.54 mg/dL (0.67-1.17); Potassium 2.9 mmol/L (3.5-5.0); eGFR CKD-EPI 107.2 (>60)
[2022-10-01 05:41] LABS: ABS Basophils 0.1 10^3/uL (0.0-0.1); ABS Eosinophils 0.3 10^3/uL (0.0-0.5); ABS Lymphocytes 1.5 10^3/uL (1.0-4.8); ABS Monocytes 0.4 10^3/uL (0.0-1.1); ABS Nucleated RBC 0.02 10^3/ul; Eosinophil % 4.5 %; Lymphocyte % 24.5 %; Nucleated Red Blood Cells % 0.3 /100 WBC (0.0-0.4)
[2022-10-01 06:47] LABS: INR 1.29 (0.88-1.18)
[2022-10-01 08:54] LABS: Magnesium 1.9 mg/dL (1.9-2.7)
[2022-10-01] MEDS ORDERED: Potassium Chloride LIQUID 20 MEQ/15 ML LIQUID PEG TUBE ONE ×2 (11:00→16:00)
[2022-10-01] MEDS ORDERED: Potassium Chloride LIQUID 20 MEQ/15 ML LIQUID PO SCH (11:00)
[2022-10-01] MEDS: NS 0.9% 1000 ml BAG 1,000 ML IV SCH (11:27)
[2022-10-01] MEDS: KCL 20 MEQ/100 ML IVPREMIX 20 MEQ/100 ML BAG IV SCH ×3 (11:27→18:16)
[2022-10-01] MEDS: Vancomycin 750 MG in NS 0.9% 250 ML IVPB SCH ×2 (14:08→21:59)
[2022-10-01] MEDS: Valproic Acid LIQ 250 MG/5 ML UDC PO SCH (16:25)
[2022-10-01] MEDS: Warfarin per PHARMACY **NOTE FOLLOW UP SCH (17:02)
[2022-10-01] MEDS: Warfarin DAILY REMINDER **NOTE FOLLOW UP SCH (17:02)
[2022-10-01 17:14] LABS: Calcium 7.1 mg/dL (8.6-10.3); Creatinine, Serum 0.49 mg/dL (0.67-1.17); Potassium 4.6 mmol/L (3.5-5.0); eGFR CKD-EPI 110.4 (>60)
[2022-10-01] MEDS: Pantoprazole VIAL 40 MG VIAL IV SCH (21:15)
[2022-10-02] MEDS: Cefepime 2 GM in Dextrose 2 GM/50 ML BAG IV SCH (01:35)
[2022-10-02] MEDS: Enoxaparin 100 MG/ML SYR SUBCUT SCH ×2 (05:14→17:36)
[2022-10-02 05:42] LABS: Hematocrit 26.6 % (38-53); Hemoglobin 8.4 g/dL (13.2-16.3); Mean Corpuscular Hemoglobin 24.6 pg (27-33); Mean Corpuscular Hgb Conc 31.5 g/dL (31-36); Mean Corpuscular Volume 78.2 fL (80-97); Mean Platelet Volume 8.9 fL (7.5-11.2); Platelet Count 253 10^3/uL (150-450); Red Cell Distribution Width 20.4 % (12-17); White Blood Count 7.2 10^3/uL (3.6-10.2)
[2022-10-02 05:51] LABS: INR 1.49 (0.88-1.18)
[2022-10-02 05:58] LABS: Calcium 7.3 mg/dL (8.6-10.3); Creatinine, Serum 0.5 mg/dL (0.67-1.17); Magnesium 1.8 mg/dL (1.9-2.7); Potassium 3.7 mmol/L (3.5-5.0); eGFR CKD-EPI 109.7 (>60)
[2022-10-02] MEDS ORDERED: Magnesium Sulfate IV 1GM/100ML 1 GM/100 ML BAG IV ONE (08:45)
[2022-10-02] MEDS: Valproic Acid LIQ 250 MG/5 ML UDC PO SCH (17:36)
[2022-10-02] MEDS: Warfarin DAILY REMINDER **NOTE FOLLOW UP SCH (17:37)
[2022-10-02] MEDS: Warfarin per PHARMACY **NOTE FOLLOW UP SCH (17:38)
[2022-10-02] MEDS: Amoxicillin/Clavul 500/125 TAB (Augmentin 500 mg tab) PO SCH (21:15)
[2022-10-02] MEDS: Pantoprazole VIAL 40 MG VIAL IV SCH (21:15)
[2022-10-03] MEDS: Enoxaparin 100 MG/ML SYR SUBCUT SCH ×3 (05:02→17:54)
[2022-10-03 05:25] LABS: INR 1.69 (0.88-1.18)
[2022-10-03 06:04] LABS: Calcium 7.2 mg/dL (8.6-10.3); Potassium 3.7 mmol/L (3.5-5.0)
[2022-10-03 06:10] LABS: Creatinine, Serum 0.55 mg/dL (0.67-1.17); eGFR CKD-EPI 106.6 (>60)
[2022-10-03] MEDS: Amoxicillin/Clavul 500/125 TAB (Augmentin 500 mg tab) PO SCH ×2 (10:34→22:24)
[2022-10-03] MEDS: Cholestyramine Resin 4 GM POWDER PO SCH ×2 (17:36→22:25)
[2022-10-03] MEDS: Valproic Acid LIQ 250 MG/5 ML UDC PO SCH (17:37)
[2022-10-03] MEDS: Warfarin per PHARMACY **NOTE FOLLOW UP SCH (17:38)
[2022-10-03] MEDS: Warfarin DAILY REMINDER **NOTE FOLLOW UP SCH (17:38)
[2022-10-03] MEDS: Pantoprazole VIAL 40 MG VIAL IV SCH (22:25)
[2022-10-04] MEDS: Enoxaparin 100 MG/ML SYR SUBCUT SCH ×2 (05:59→16:19)
[2022-10-04 06:44] LABS: INR 1.73 (0.88-1.18)
[2022-10-04 07:06] LABS: Calcium 7.4 mg/dL (8.6-10.3); Creatinine, Serum 0.48 mg/dL (0.67-1.17); Magnesium 1.9 mg/dL (1.9-2.7); Potassium 3.4 mmol/L (3.5-5.0); eGFR CKD-EPI 111.1 (>60)
[2022-10-04] MEDS: Potassium Chlor 20 meq TAB.ER PO SCH ×2 (09:23→16:20)
[2022-10-04] MEDS: Amoxicillin/Clavul 500/125 TAB (Augmentin 500 mg tab) PO SCH ×2 (09:23→23:37)
[2022-10-04] MEDS: Cholestyramine Resin 4 GM POWDER PO SCH (11:55)
[2022-10-04] MEDS ORDERED: Potassium Chlor 20 meq TAB.ER PO ONE (16:00)
[2022-10-04] MEDS: Valproic Acid LIQ 250 MG/5 ML UDC PO SCH (17:42)
[2022-10-04] MEDS: Warfarin DAILY REMINDER **NOTE FOLLOW UP SCH (17:44)
[2022-10-04] MEDS: Warfarin per PHARMACY **NOTE FOLLOW UP SCH (17:44)
[2022-10-04] MEDS: Valproic Acid LIQ 250 MG/5 ML UDC PEG TUBE SCH (17:59)
[2022-10-04] MEDS: Pantoprazole VIAL 40 MG VIAL IV SCH (23:22)
[2022-10-05] MEDS: Cholestyramine Resin 4 GM POWDER PO SCH ×3 (01:28→23:29)
[2022-10-05] MEDS: Enoxaparin 100 MG/ML SYR SUBCUT SCH ×2 (04:37→16:23)
[2022-10-05 06:34] LABS: INR 2.07 (0.88-1.18)
[2022-10-05] MEDS: Amoxicillin/Clavul 500/125 TAB (Augmentin 500 mg tab) PO SCH ×2 (10:57→21:51)
[2022-10-05] MEDS: Valproic Acid LIQ 250 MG/5 ML UDC PEG TUBE SCH (18:06)
[2022-10-05] MEDS: Warfarin per PHARMACY **NOTE FOLLOW UP SCH (21:51)
[2022-10-05] MEDS: Warfarin DAILY REMINDER **NOTE FOLLOW UP SCH (21:51)
[2022-10-05] MEDS: Pantoprazole VIAL 40 MG VIAL IV SCH (21:52)
[2022-10-06] MEDS: Enoxaparin 100 MG/ML SYR SUBCUT SCH ×2 (04:59→16:43)
[2022-10-06 05:24] LABS: Hematocrit 26.3 % (38-53); Hemoglobin 8.4 g/dL (13.2-16.3); Mean Corpuscular Hemoglobin 24.3 pg (27-33); Mean Corpuscular Hgb Conc 31.8 g/dL (31-36); Mean Corpuscular Volume 76.4 fL (80-97); Platelet Count 286 10^3/uL (150-450); Red Blood Count 3.44 10^6/uL (4.06-5.63); Red Cell Distribution Width 21.4 % (12-17)
[2022-10-06 05:29] LABS: INR 1.61 (0.88-1.18)
[2022-10-06 05:40] LABS: Calcium 7.3 mg/dL (8.6-10.3); Creatinine, Serum 0.38 mg/dL (0.67-1.17); Magnesium 1.7 mg/dL (1.9-2.7); Potassium 3.4 mmol/L (3.5-5.0); eGFR CKD-EPI 119.2 (>60)
[2022-10-06] MEDS: Dextrose 50% Syringe 50 ml 25 GM/50 ML SYRINGE IV PUSH PRN (08:13)
[2022-10-06] MEDS ORDERED: Magnesium Sulfate 2 gm BAG 2 GM/50 ML BAG IVPB ONE ×2 (09:30→16:05)
[2022-10-06] MEDS: Potassium Chlor 20 meq TAB.ER PO SCH ×3 (10:18→13:17)
[2022-10-06] MEDS: Amoxicillin/Clavul 500/125 TAB (Augmentin 500 mg tab) PO SCH ×2 (10:19→23:02)
[2022-10-06] MEDS ORDERED: Sodium Bicarb 650 mg (ANTACID) TAB PO ONE (13:15)
[2022-10-06] MEDS ORDERED: Pancrelipase 5,000 units CAP G TUBE ONE ×2 (13:15→17:06)
[2022-10-06 13:28] LABS: Ferritin 52.3 ng/mL (24-336)
[2022-10-06] MEDS: Cholestyramine Resin 4 GM POWDER PO SCH ×2 (13:36→22:55)
[2022-10-06] MEDS ORDERED: Sodium Bicarb 650 mg (ANTACID) TAB G TUBE ONE (17:07)
[2022-10-06] MEDS: Warfarin DAILY REMINDER **NOTE FOLLOW UP SCH (17:21)
[2022-10-06] MEDS: Valproic Acid LIQ 250 MG/5 ML UDC PEG TUBE SCH (17:21)
[2022-10-06] MEDS: Warfarin per PHARMACY **NOTE FOLLOW UP SCH (19:42)
[2022-10-06] MEDS: Pantoprazole VIAL 40 MG VIAL IV SCH (22:55)
[2022-10-07] MEDS: Enoxaparin 100 MG/ML SYR SUBCUT SCH ×2 (05:39→15:48)
[2022-10-07 06:11] LABS: INR 1.45 (0.88-1.18)
[2022-10-07] MEDS: Amoxicillin/Clavul 500/125 TAB (Augmentin 500 mg tab) PO SCH ×2 (09:52→21:47)
[2022-10-07] MEDS: Cholestyramine Resin 4 GM POWDER PO SCH (11:37)
[2022-10-07] MEDS: Valproic Acid LIQ 250 MG/5 ML UDC PEG TUBE SCH (17:06)
[2022-10-07] MEDS: Warfarin DAILY REMINDER **NOTE FOLLOW UP SCH (17:07)
[2022-10-07] MEDS: Pantoprazole VIAL 40 MG VIAL IV SCH (21:46)
[2022-10-08] MEDS: Cholestyramine Resin 4 GM POWDER PO SCH ×2 (00:40→10:50)
[2022-10-08] MEDS: Enoxaparin 100 MG/ML SYR SUBCUT SCH (05:01)
[2022-10-08 06:04] LABS: Hematocrit 26.7 % (38-53); Hemoglobin 8.4 g/dL (13.2-16.3); Mean Corpuscular Hemoglobin 24.6 pg (27-33); Mean Corpuscular Hgb Conc 31.4 g/dL (31-36); Mean Corpuscular Volume 78.4 fL (80-97); Mean Platelet Volume 8.4 fL (7.5-11.2); Platelet Count 237 10^3/uL (150-450); Red Blood Count 3.41 10^6/uL (4.06-5.63); Red Cell Distribution Width 21.4 % (12-17); White Blood Count 6.4 10^3/uL (3.6-10.2)
[2022-10-08 06:10] LABS: INR 1.49 (0.88-1.18)
[2022-10-08 06:22] LABS: Calcium 7.3 mg/dL (8.6-10.3); Creatinine, Serum 0.38 mg/dL (0.67-1.17); Potassium 3.4 mmol/L (3.5-5.0); eGFR CKD-EPI 118.5 (>60)
[2022-10-08] MEDS ORDERED: Potassium Chloride LIQUID 20 MEQ/15 ML LIQUID PO ONE (07:57)
[2022-10-08] MEDS: Warfarin per PHARMACY **NOTE FOLLOW UP SCH (08:55)
[2022-10-08] MEDS: Amoxicillin/Clavul 500/125 TAB (Augmentin 500 mg tab) PO SCH (10:48)
[2022-10-08 14:45] LABS: Rapid COVID-19 Molecular Undetected (Undetected)
[2022-10-08 15:33] LABS: Pancreatic Elastase Feces <40 mcg/g
[2022-10-08 18:34] VITALS: BP 137/66
== END 2022-10-08 16:00 | DRG 871 ==
LOC: ED 13:44 → EDHOLD 18:08 → SUATTDRO 18:08 → MEDTELE 20:38 → EDHOLD 20:47 → ICU 21:11 → MEDTELE 09-26 18:33
PROVIDERS: ADMIT Internal Medicine; ATTEND Internal Medicine

== ENCOUNTER 2022-11-18 22:02 | Inpatient (IN) ==
[2022-11-18] MEDS ORDERED: Albuterol/Ipratropium NEB.SOL (2.5/0.5 MG) 3 ML NEB.SOLN INH ONE (22:13)
[2022-11-18] MEDS ORDERED: NS 0.9% 1000 ml BAG 1,000 ML IV ONE ×2 (22:25→23:27)
[2022-11-18] MEDS ORDERED: Acetaminophen IV 1 GM/100ML 1,000 MG/100 ML BAG IV ONE (22:26)
[2022-11-18] MEDS ORDERED: Piperacillin/Tazobac 3.375 BAG 3.375 GM/100 ML BAG IV ONE (22:29)
[2022-11-18] MEDS ORDERED: Vancomycin 1,500 MG in NS 0.9% 250 ml 250 ML IVPB ONE (22:29)
[2022-11-18 23:06] LABS: Activated Partial Thrombo Time 39.7 seconds (26.0-38.0); INR 2.21 (0.88-1.18)
[2022-11-18 23:11] LABS: Hematocrit 28.6 % (38-53); Hemoglobin 8.4 g/dL (13.2-16.3); Mean Corpuscular Hemoglobin 22.7 pg (27-33); Mean Corpuscular Hgb Conc 29.5 g/dL (31-36); Mean Platelet Volume 8.6 fL (7.5-11.2); Platelet Count 421 10^3/uL (150-450); Red Blood Count 3.72 10^6/uL (4.06-5.63); Red Cell Distribution Width 20.6 % (12-17); White Blood Count 26.2 10^3/uL (3.6-10.2)
[2022-11-18 23:13] LABS: Blood Urea Nitrogen 75 mg/dL (6-24); CO2 Carbon Dioxide 16 mmol/L (22-32); Chloride 119 mmol/L (101-111); Glucose 137 mg/dL (70-100); Sodium 147 mmol/L (135-145)
[2022-11-18 23:14] LABS: ALT 14 U/L (7-52); Albumin 2.7 g/dL (3.2-5.2); Albumin/Globulin Ratio 0.6 (1-3); Alkaline Phosphatase 149 U/L (35-149); C Reactive Protein 466.13 mg/L (<8.01); Creatinine, Serum 2.22 mg/dL (0.67-1.17); Globulin 4.7 g/dL (2-4); Total Protein 7.4 g/dL (6.4-8.9); eGFR CKD-EPI 30.9 (>60)
[2022-11-18 23:19] LABS: High Sens Troponin Baseline 32 pg/mL (<20)
[2022-11-18 23:21] LABS: Anion Gap 12 mmol/L (2-16)
[2022-11-18 23:32] LABS: ABS Lymphocytes 0.7 10^3/uL (1.0-4.8); ABS Monocytes 0.6 10^3/uL (0.0-1.1); ABS Neutrophils 24.8 10^3/uL (1.5-7.6); ABS Nucleated RBC 0.01 10^3/ul; Lymphocyte % 2.6 %
[2022-11-18 23:34] LABS: Hypochromasia 1+; Microcytosis 1+
[2022-11-18 23:35] LABS: Anisocytosis 2+; Polychromasia 1+; Toxic Granulation 1+
[2022-11-18 23:37] LABS: Valproic Acid < 13.0 mcg/mL (50-100)
[2022-11-18 23:38] LABS: Urine Appearance Turbid; Urine Bilirubin Negative (Negative); Urine Blood 2+ (Negative); Urine Color Amber; Urine Glucose Negative (Negative); Urine Ketones Negative (Negative); Urine Nitrite Positive (Negative); Urine Protein 2+(100 mg/dL) (Negative); Urine Specific Gravity 1.011 (1.002-1.030); Urine Urobilinogen Negative (Negative)
[2022-11-18 23:40] LABS: Urine Bacteria Absent (Absent); Urine Red Blood Cell 3+(>10/hpf) (Absent); Urine White Blood Cell 3+(>20/hpf) (Absent)
[2022-11-19 00:14] LABS: Potassium Redraw 6.6 mmol/L (3.5-5.0)
[2022-11-19 00:16] LABS: High Sensitivity Troponin 1 Hr 30 pg/mL (<20)
[2022-11-19] MEDS ORDERED: Dextrose 50% VIAL 50 ml IV PRN (00:16)
[2022-11-19] MEDS: Norepinephrine 16MCG/ML BAGD5W 4,000 MCG/250 ML BAG IV SCH ×6 (00:17→23:21)
[2022-11-19] MEDS ORDERED: Dextrose 50% Syringe 50 ml 25 GM/50 ML SYRINGE PRN (00:28)
[2022-11-19] MEDS ORDERED: Dextrose 50% Syringe 50 ml 25 GM/50 ML SYRINGE IV PUSH ONE (00:30)
[2022-11-19 00:32] LABS: Venous Bicarbonate HCO3 17.5 mmol/L (24-28)
[2022-11-19] MEDS ORDERED: Ondansetron 4 mg VIAL 2 MG/ML 2 ml VIAL IV PRN (00:32)
[2022-11-19] MEDS ORDERED: Lactated Ringers 1000 ml BAG 1,000 ML IV ONE ×2 (00:34→09:05)
[2022-11-19] MEDS ORDERED: Furosemide 20 mg/2 ml IV VIAL IV SLOW PU ONE (00:34)
[2022-11-19] MEDS ORDERED: Sodium Bicarbonate 8.4% SYR 50 ml SYRINGE IV ONE (00:41)
[2022-11-19 00:49] LABS: Calcium 7.6 mg/dL (8.6-10.3); Creatinine, Serum 2.2 mg/dL (0.67-1.17); eGFR CKD-EPI 31.2 (>60)
[2022-11-19 00:53] LABS: Potassium 6.3 mmol/L (3.5-5.0)
[2022-11-19] MEDS ORDERED: Zosyn per Pharmacy NOTE FOLLOW UP SCH (03:00)
[2022-11-19] MEDS ORDERED: Vancomycin per Pharmacy 1 EA NOTE FOLLOW UP SCH (03:00)
[2022-11-19] MEDS ORDERED: ZOSYN 3.375 GM Q12H per EXTENDED INFUSION IV SCH (03:00)
[2022-11-19] MEDS ORDERED: fentaNYL 100 mcg/2 ml 50 MCG/ML VIAL ONE (03:03)
[2022-11-19] MEDS: Enoxaparin 80 MG/0.8 ML SYR SUBCUT SCH ×2 (04:10→17:01)
[2022-11-19 04:25] LABS: Calcium 7.9 mg/dL (8.6-10.3); Creatinine, Serum 2.12 mg/dL (0.67-1.17); Potassium 5.7 mmol/L (3.5-5.0); eGFR CKD-EPI 32.7 (>60)
[2022-11-19] MEDS ORDERED: fentaNYL 100 mcg/2 ml 50 MCG/ML VIAL IV SLOW PU ONE ×2 (06:44)
[2022-11-19] MEDS: Acetaminophen IV 1 GM/100ML 1,000 MG/100 ML BAG IV PRN ×2 (06:45→16:53)
[2022-11-19] MEDS: fentaNYL 100 mcg/2 ml 50 MCG/ML VIAL IV SLOW PU PRN ×3 (08:23→19:47)
[2022-11-19] MEDS ORDERED: Dextrose 50% Syringe 50 ml 25 GM/50 ML SYRINGE IV PUSH PRN (09:25)
[2022-11-19] MEDS: D5W 1/2 NS 1000 ml BAG 1,000 ML IV SCH ×2 (10:49→23:09)
[2022-11-19] MEDS: guaiFENesin 100 mg/5 ml LIQ unit dose cup G TUBE SCH ×3 (11:59→22:14)
[2022-11-19] MEDS: Valproic Acid LIQ 250 MG/5 ML UDC PO SCH (11:59)
[2022-11-19 12:22] LABS: Hematocrit 26.3 % (38-53); Hemoglobin 7.5 g/dL (13.2-16.3); Mean Corpuscular Hemoglobin 22.4 pg (27-33); Mean Corpuscular Hgb Conc 28.5 g/dL (31-36); Mean Corpuscular Volume 78.7 fL (80-97); Mean Platelet Volume 8.3 fL (7.5-11.2); Platelet Count 342 10^3/uL (150-450); Red Blood Count 3.34 10^6/uL (4.06-5.63); Red Cell Distribution Width 20.5 % (12-17); White Blood Count 27.8 10^3/uL (3.6-10.2)
[2022-11-19 12:25] LABS: Calcium 7.8 mg/dL (8.6-10.3); Creatinine, Serum 2.24 mg/dL (0.67-1.17); Phosphorus 8.4 mg/dL (2.5-5.0); Potassium 5.9 mmol/L (3.5-5.0); eGFR CKD-EPI 30.6 (>60)
[2022-11-19 13:42] LABS: Anisocytosis 1+; Microcytosis 1+
[2022-11-19 13:44] LABS: ABS Lymphocytes 0.3 10^3/uL (1.0-4.8); ABS Monocytes 0.4 10^3/uL (0.0-1.1); ABS Neutrophils 27.1 10^3/uL (1.5-7.6); ABS Nucleated RBC 0.01 10^3/ul; Eosinophil % 0.1 %; Lymphocyte % 1.1 %
[2022-11-19] MEDS: Patiromer POWDER 8.4 GM PAK PO SCH (13:44)
[2022-11-19] MEDS: ZOSYN 3.375 GM Q12H per EXTENDED INFUSION IV SCH ×2 (15:19→22:14)
[2022-11-19 17:12] LABS: Calcium 7.8 mg/dL (8.6-10.3); Creatinine, Serum 2.16 mg/dL (0.67-1.17); Potassium 5.7 mmol/L (3.5-5.0); eGFR CKD-EPI 31.9 (>60)
[2022-11-19 18:04] LABS: Urine Creatinine Concentration 23.33 mg/dL (20.00-370.00)
[2022-11-19] MEDS: Scopolamine 1 mg/72hr PATCH TRANSDERM SCH (18:08)
[2022-11-19] MEDS ORDERED: Vancomycin 1000 MG in NS 0.9% 250 ML IVPB SCH (20:00)
[2022-11-19] MEDS: Thiamine 100 MG/ML 2 ml VIAL 250 MG in NS 0.9% 100 ml BAG 100 ML IV SCH (21:57)
[2022-11-20] MEDS: fentaNYL 100 mcg/2 ml 50 MCG/ML VIAL IV SLOW PU PRN ×5 (00:19→19:57)
[2022-11-20 00:38] LABS: Calcium 7.3 mg/dL (8.6-10.3); Creatinine, Serum 1.98 mg/dL (0.67-1.17); Potassium 4.7 mmol/L (3.5-5.0); eGFR CKD-EPI 35.4 (>60)
[2022-11-20] MEDS: Norepinephrine 16MCG/ML BAGD5W 4,000 MCG/250 ML BAG IV SCH ×3 (05:06→12:49)
[2022-11-20] MEDS: Enoxaparin 80 MG/0.8 ML SYR SUBCUT SCH ×2 (05:27→17:41)
[2022-11-20 05:30] LABS: ABS Eosinophils 0.1 10^3/uL (0.0-0.5); ABS Lymphocytes 0.4 10^3/uL (1.0-4.8); ABS Monocytes 0.3 10^3/uL (0.0-1.1); ABS Neutrophils 12.2 10^3/uL (1.5-7.6); ABS Nucleated RBC 0.02 10^3/ul; Eosinophil % 0.9 %; Hemoglobin 6.6 g/dL (13.2-16.3); Lymphocyte % 2.7 %; Mean Corpuscular Hemoglobin 23.1 pg (27-33); Mean Corpuscular Volume 76.8 fL (80-97); Mean Platelet Volume 8.1 fL (7.5-11.2); Nucleated Red Blood Cells % 0.1 /100 WBC (0.0-0.4); Platelet Count 157 10^3/uL (150-450); Red Blood Count 2.86 10^6/uL (4.06-5.63); Red Cell Distribution Width 20.5 % (12-17)
[2022-11-20] MEDS: guaiFENesin 100 mg/5 ml LIQ unit dose cup G TUBE SCH ×4 (05:32→22:38)
[2022-11-20 05:49] LABS: Calcium 7.4 mg/dL (8.6-10.3); Creatinine, Serum 1.86 mg/dL (0.67-1.17); Potassium 4.2 mmol/L (3.5-5.0); eGFR CKD-EPI 38.2 (>60)
[2022-11-20] MEDS: ZOSYN 3.375 GM Q12H per EXTENDED INFUSION IV SCH ×3 (07:57→22:38)
[2022-11-20 07:58] LABS: Corrected Retic Count 0.3 % (0.5-1.5); Immature Retic Fraction 0.24; RBC Retic Count 2.86 10^6/ul (4.06-5.63)
[2022-11-20] MEDS: Valproic Acid LIQ 250 MG/5 ML UDC PO SCH (07:58)
[2022-11-20] MEDS: Patiromer POWDER 8.4 GM PAK PO SCH (07:59)
[2022-11-20 09:12] LABS: Direct Bilirubin 0.1 mg/dL (0.03-0.18); Indirect Bilirubin 0.1 mg/dL (0.3-1.0); Total Bilirubin 0.2 mg/dL (0.2-1.0)
[2022-11-20] MEDS: Acetaminophen IV 1 GM/100ML 1,000 MG/100 ML BAG IV PRN ×2 (15:07)
[2022-11-20 15:22] LABS: Hematocrit 25.5 % (38-53); Mean Corpuscular Hemoglobin 24.3 pg (27-33); Mean Corpuscular Hgb Conc 31.2 g/dL (31-36); Mean Corpuscular Volume 77.9 fL (80-97); Mean Platelet Volume 8.1 fL (7.5-11.2); Platelet Count 116 10^3/uL (150-450); Red Blood Count 3.27 10^6/uL (4.06-5.63); White Blood Count 8.2 10^3/uL (3.6-10.2)
[2022-11-20] MEDS: Thiamine 100 MG/ML 2 ml VIAL 250 MG in NS 0.9% 100 ml BAG 100 ML IV SCH (21:04)
[2022-11-21] MEDS: Acetaminophen IV 1 GM/100ML 1,000 MG/100 ML BAG IV PRN ×2 (01:09→11:28)
[2022-11-21] MEDS: Norepinephrine 16MCG/ML BAGD5W 4,000 MCG/250 ML BAG IV SCH ×2 (02:03→14:14)
[2022-11-21] MEDS: fentaNYL 100 mcg/2 ml 50 MCG/ML VIAL IV SLOW PU PRN ×2 (02:19→09:33)
[2022-11-21 05:03] LABS: ABS Eosinophils 0.1 10^3/uL (0.0-0.5); ABS Lymphocytes 0.3 10^3/uL (1.0-4.8); ABS Monocytes 0.1 10^3/uL (0.0-1.1); ABS Neutrophils 5.7 10^3/uL (1.5-7.6); ABS Nucleated RBC 0.01 10^3/ul; Eosinophil % 1.1 %; Hematocrit 24.2 % (38-53); Hemoglobin 7.7 g/dL (13.2-16.3); Lymphocyte % 4.5 %; Mean Corpuscular Hemoglobin 24.2 pg (27-33); Mean Corpuscular Hgb Conc 31.6 g/dL (31-36); Mean Corpuscular Volume 76.6 fL (80-97); Mean Platelet Volume 8.1 fL (7.5-11.2); Nucleated Red Blood Cells % 0.1 /100 WBC (0.0-0.4); Platelet Count 91 10^3/uL (150-450); Red Blood Count 3.16 10^6/uL (4.06-5.63); White Blood Count 6.2 10^3/uL (3.6-10.2)
[2022-11-21] MEDS: Enoxaparin 80 MG/0.8 ML SYR SUBCUT SCH (05:13)
[2022-11-21] MEDS: guaiFENesin 100 mg/5 ml LIQ unit dose cup G TUBE SCH ×4 (05:17→22:25)
[2022-11-21 05:18] LABS: Calcium 7.1 mg/dL (8.6-10.3); Creatinine, Serum 1.36 mg/dL (0.67-1.17); Magnesium 2.1 mg/dL (1.9-2.7); Potassium 2.9 mmol/L (3.5-5.0); eGFR CKD-EPI 55.6 (>60)
[2022-11-21] MEDS: KCL 20 MEQ/100 ML IVPREMIX 20 MEQ/100 ML BAG IV SCH ×2 (09:11→11:25)
[2022-11-21] MEDS: ZOSYN 3.375 GM Q12H per EXTENDED INFUSION IV SCH (09:14)
[2022-11-21] MEDS: Valproic Acid LIQ 250 MG/5 ML UDC PO SCH (09:17)
[2022-11-21] MEDS ORDERED: Meropenem 1 GM PREMIX(*) 1 GM/50 ML BAG IV SCH (11:00)
[2022-11-21] MEDS: Pantoprazole VIAL 40 MG VIAL IV SCH ×2 (11:20→22:25)
[2022-11-21] MEDS: Morphine 2 MG/ML SYRINGE IV PRN ×3 (11:49→23:14)
[2022-11-21 17:01] LABS: Hematocrit 23.8 % (38-53); Hemoglobin 7.4 g/dL (13.2-16.3); Mean Corpuscular Hgb Conc 31.2 g/dL (31-36); Mean Corpuscular Volume 76.9 fL (80-97); Mean Platelet Volume 8.6 fL (7.5-11.2); Platelet Count 81 10^3/uL (150-450); Red Blood Count 3.09 10^6/uL (4.06-5.63); White Blood Count 5.9 10^3/uL (3.6-10.2)
[2022-11-21] MEDS ORDERED: Vancomycin Trough Check NOTE FOLLOW UP ONE (19:30)
[2022-11-21] MEDS: Thiamine 100 MG/ML 2 ml VIAL 250 MG in NS 0.9% 100 ml BAG 100 ML IV SCH (21:13)
[2022-11-22] MEDS ORDERED: Morphine 2 MG/ML SYRINGE IV ONE (00:45)
[2022-11-22] MEDS: Norepinephrine 16MCG/ML BAGD5W 4,000 MCG/250 ML BAG IV SCH ×2 (01:33→17:02)
[2022-11-22] MEDS: Acetaminophen IV 1 GM/100ML 1,000 MG/100 ML BAG IV PRN ×2 (01:38→10:17)
[2022-11-22] MEDS: guaiFENesin 100 mg/5 ml LIQ unit dose cup G TUBE SCH ×4 (05:39→21:44)
[2022-11-22 05:54] LABS: Hematocrit 23.9 % (38-53); Hemoglobin 7.5 g/dL (13.2-16.3); Mean Corpuscular Hemoglobin 24.1 pg (27-33); Mean Corpuscular Hgb Conc 31.6 g/dL (31-36); Mean Corpuscular Volume 76.4 fL (80-97); Platelet Count 88 10^3/uL (150-450); Red Blood Count 3.13 10^6/uL (4.06-5.63); Red Cell Distribution Width 20.4 % (12-17); White Blood Count 7.9 10^3/uL (3.6-10.2)
[2022-11-22 06:26] LABS: Calcium 6.6 mg/dL (8.6-10.3)
[2022-11-22 06:32] LABS: Creatinine, Serum 1.11 mg/dL (0.67-1.17)
[2022-11-22 06:34] LABS: ABS Eosinophils 0.1 10^3/uL (0.0-0.5); ABS Lymphocytes 0.3 10^3/uL (1.0-4.8); ABS Monocytes 0.3 10^3/uL (0.0-1.1); ABS Neutrophils 7.2 10^3/uL (1.5-7.6); Lymphocyte % 4.4 %
[2022-11-22] MEDS ORDERED: CALCIUM GLUCONATE 1GM/50ML NS 1 GM/50 ML BAG IV ONE (06:40)
[2022-11-22] MEDS: KCL 20 MEQ/100 ML IVPREMIX 20 MEQ/100 ML BAG IV SCH ×2 (07:16→09:25)
[2022-11-22] MEDS ORDERED: KCL 20 MEQ/100 ML IVPREMIX 20 MEQ/100 ML BAG IV SCH (08:00)
[2022-11-22] MEDS: Valproic Acid LIQ 250 MG/5 ML UDC PO SCH (10:04)
[2022-11-22] MEDS: Pantoprazole VIAL 40 MG VIAL IV SCH ×2 (10:07→21:44)
[2022-11-22 10:26] LABS: Albumin 1.7 g/dL (3.2-5.2)
[2022-11-22] MEDS ORDERED: Zosyn per Pharmacy NOTE FOLLOW UP SCH (13:00)
[2022-11-22] MEDS: NORMOSOL-R pH 7.4 1000 mL BAG 1,000 ML IV SCH ×2 (13:03→15:16)
[2022-11-22] MEDS ORDERED: ZOSYN 3.375 GM x ONE DOSE over 30 miuntes IV (15:00)
[2022-11-22] MEDS: Morphine 2 MG/ML SYRINGE IV PRN (15:28)
[2022-11-22] MEDS: Scopolamine 1 mg/72hr PATCH TRANSDERM SCH (17:03)
[2022-11-22] MEDS: ZOSYN 3.375 GM Q8H per EXTENDED INFUSION IV SCH (19:30)
[2022-11-22] MEDS: Thiamine 100 MG/ML 2 ml VIAL 250 MG in NS 0.9% 100 ml BAG 100 ML IV SCH (21:43)
[2022-11-23] MEDS: ZOSYN 3.375 GM Q8H per EXTENDED INFUSION IV SCH ×3 (03:39→20:04)
[2022-11-23] MEDS: Morphine 2 MG/ML SYRINGE IV PRN ×2 (03:49→23:09)
[2022-11-23] MEDS: Acetaminophen IV 1 GM/100ML 1,000 MG/100 ML BAG IV PRN (03:49)
[2022-11-23] MEDS: guaiFENesin 100 mg/5 ml LIQ unit dose cup G TUBE SCH ×4 (06:01→23:10)
[2022-11-23 06:25] LABS: Hematocrit 21.3 % (38-53); Hemoglobin 6.7 g/dL (13.2-16.3); Mean Corpuscular Hemoglobin 24.1 pg (27-33); Mean Corpuscular Hgb Conc 31.4 g/dL (31-36); Mean Corpuscular Volume 76.8 fL (80-97); Mean Platelet Volume 9.5 fL (7.5-11.2); Platelet Count 98 10^3/uL (150-450); Red Blood Count 2.77 10^6/uL (4.06-5.63); Red Cell Distribution Width 20.7 % (12-17); White Blood Count 9.8 10^3/uL (3.6-10.2)
[2022-11-23 06:45] LABS: Calcium 7.1 mg/dL (8.6-10.3); Creatinine, Serum 0.95 mg/dL (0.67-1.17); Potassium 3.1 mmol/L (3.5-5.0); eGFR CKD-EPI 85.6 (>60)
[2022-11-23 07:01] LABS: ABS Eosinophils 0.1 10^3/uL (0.0-0.5); ABS Lymphocytes 0.7 10^3/uL (1.0-4.8); ABS Monocytes 0.6 10^3/uL (0.0-1.1); ABS Neutrophils 8.3 10^3/uL (1.5-7.6); ABS Nucleated RBC 0.02 10^3/ul; Eosinophil % 1.1 %; Lymphocyte % 7.3 %; Nucleated Red Blood Cells % 0.2 /100 WBC (0.0-0.4)
[2022-11-23] MEDS: Norepinephrine 16MCG/ML BAGD5W 4,000 MCG/250 ML BAG IV SCH (08:38)
[2022-11-23] MEDS: KCL 20 MEQ/100 ML IVPREMIX 20 MEQ/100 ML BAG IV SCH ×3 (08:38→10:57)
[2022-11-23] MEDS: Valproic Acid LIQ 250 MG/5 ML UDC PO SCH (08:38)
[2022-11-23] MEDS: Pantoprazole VIAL 40 MG VIAL IV SCH ×2 (09:00→23:10)
[2022-11-23] MEDS: Psyllium PAK PO SCH (11:30)
[2022-11-23] MEDS: Thiamine 100 MG/ML 2 ml VIAL 250 MG in NS 0.9% 100 ml BAG 100 ML IV SCH (23:00)
[2022-11-24] MEDS: ZOSYN 3.375 GM Q8H per EXTENDED INFUSION IV SCH ×3 (03:48→18:23)
[2022-11-24 04:29] LABS: ABS Eosinophils 0.2 10^3/uL (0.0-0.5); ABS Lymphocytes 0.6 10^3/uL (1.0-4.8); ABS Monocytes 0.4 10^3/uL (0.0-1.1); ABS Neutrophils 7.1 10^3/uL (1.5-7.6); Eosinophil % 1.9 %; Hematocrit 26.3 % (38-53); Hemoglobin 8.4 g/dL (13.2-16.3); Lymphocyte % 7.5 %; Mean Corpuscular Hemoglobin 25.8 pg (27-33); Mean Corpuscular Hgb Conc 31.8 g/dL (31-36); Mean Corpuscular Volume 81.1 fL (80-97); Mean Platelet Volume 9.6 fL (7.5-11.2); Platelet Count 85 10^3/uL (150-450); Red Blood Count 3.25 10^6/uL (4.06-5.63); Red Cell Distribution Width 21.9 % (12-17); White Blood Count 8.3 10^3/uL (3.6-10.2)
[2022-11-24 04:41] LABS: Creatinine, Serum 0.82 mg/dL (0.67-1.17); Potassium 2.8 mmol/L (3.5-5.0); eGFR CKD-EPI 93.9 (>60)
[2022-11-24] MEDS: guaiFENesin 100 mg/5 ml LIQ unit dose cup G TUBE SCH ×4 (07:17→22:14)
[2022-11-24] MEDS: KCL 20 MEQ/100 ML IVPREMIX 20 MEQ/100 ML BAG IV SCH ×4 (08:41→15:28)
[2022-11-24] MEDS: Valproic Acid LIQ 250 MG/5 ML UDC PO SCH (08:45)
[2022-11-24] MEDS: Psyllium PAK PO SCH (08:45)
[2022-11-24] MEDS: Pantoprazole VIAL 40 MG VIAL IV SCH ×2 (11:29→22:21)
[2022-11-24] MEDS ORDERED: Albuterol/Ipratropium NEB.SOL (2.5/0.5 MG) 3 ML NEB.SOLN ONE (19:51)
[2022-11-24] MEDS: Albuterol/Ipratropium NEB.SOL (2.5/0.5 MG) 3 ML NEB.SOLN INH PRN (19:56)
[2022-11-24] MEDS: Morphine 2 MG/ML SYRINGE IV PRN (20:26)
[2022-11-24] MEDS: Thiamine 100 MG/ML 2 ml VIAL 250 MG in NS 0.9% 100 ml BAG 100 ML IV SCH (22:10)
[2022-11-25] MEDS: Morphine 2 MG/ML SYRINGE IV PRN ×2 (04:34→20:29)
[2022-11-25] MEDS: ZOSYN 3.375 GM Q8H per EXTENDED INFUSION IV SCH ×3 (04:35→18:25)
[2022-11-25] MEDS: guaiFENesin 100 mg/5 ml LIQ unit dose cup G TUBE SCH ×4 (05:12→22:34)
[2022-11-25 05:23] LABS: ABS Eosinophils 0.3 10^3/uL (0.0-0.5); ABS Monocytes 0.6 10^3/uL (0.0-1.1); ABS Neutrophils 8.2 10^3/uL (1.5-7.6); ABS Nucleated RBC 0.01 10^3/ul; Eosinophil % 2.7 %; Hematocrit 26.4 % (38-53); Hemoglobin 8.5 g/dL (13.2-16.3); Lymphocyte % 9.8 %; Mean Corpuscular Hemoglobin 25.8 pg (27-33); Mean Corpuscular Volume 80.7 fL (80-97); Mean Platelet Volume 9.6 fL (7.5-11.2); Nucleated Red Blood Cells % 0.1 /100 WBC (0.0-0.4); Platelet Count 106 10^3/uL (150-450); Red Blood Count 3.27 10^6/uL (4.06-5.63); Red Cell Distribution Width 22.2 % (12-17); White Blood Count 10.1 10^3/uL (3.6-10.2)
[2022-11-25 05:38] LABS: Calcium 7.1 mg/dL (8.6-10.3); Creatinine, Serum 0.77 mg/dL (0.67-1.17); Phosphorus 2.2 mg/dL (2.5-5.0); Potassium 3.6 mmol/L (3.5-5.0); eGFR CKD-EPI 95.7 (>60)
[2022-11-25] MEDS: Valproic Acid LIQ 250 MG/5 ML UDC PO SCH (10:26)
[2022-11-25] MEDS: Pantoprazole VIAL 40 MG VIAL IV SCH ×2 (10:26→22:34)
[2022-11-25] MEDS: Psyllium PAK PO SCH (10:26)
[2022-11-25] MEDS ORDERED: Loperamide LIQ 2 MG/15 ML UDC PO ONE (11:00)
[2022-11-25] MEDS ORDERED: Potassium Acid Phos 500 mg TAB PO ONE (11:00)
[2022-11-25] MEDS: Lactated Ringers 1000 ml BAG 1,000 ML IV SCH (12:34)
[2022-11-25] MEDS: Scopolamine 1 mg/72hr PATCH TRANSDERM SCH (17:09)
[2022-11-25] MEDS: Thiamine 100 MG/ML 2 ml VIAL 250 MG in NS 0.9% 100 ml BAG 100 ML IV SCH (22:33)
[2022-11-26] MEDS: ZOSYN 3.375 GM Q8H per EXTENDED INFUSION IV SCH ×3 (04:04→19:53)
[2022-11-26] MEDS: guaiFENesin 100 mg/5 ml LIQ unit dose cup G TUBE SCH ×4 (05:42→22:02)
[2022-11-26 05:59] LABS: ABS Basophils 0.1 10^3/uL (0.0-0.1); ABS Eosinophils 0.3 10^3/uL (0.0-0.5); ABS Lymphocytes 0.9 10^3/uL (1.0-4.8); ABS Monocytes 0.7 10^3/uL (0.0-1.1); ABS Neutrophils 8.2 10^3/uL (1.5-7.6); ABS Nucleated RBC 0.02 10^3/ul; Eosinophil % 2.5 %; Hematocrit 24.3 % (38-53); Hemoglobin 7.7 g/dL (13.2-16.3); Lymphocyte % 9.3 %; Mean Corpuscular Hemoglobin 25.7 pg (27-33); Mean Corpuscular Hgb Conc 31.7 g/dL (31-36); Mean Corpuscular Volume 80.9 fL (80-97); Mean Platelet Volume 9.4 fL (7.5-11.2); Nucleated Red Blood Cells % 0.2 /100 WBC (0.0-0.4); Platelet Count 124 10^3/uL (150-450); Red Blood Count 3.01 10^6/uL (4.06-5.63); Red Cell Distribution Width 22.5 % (12-17); White Blood Count 10.1 10^3/uL (3.6-10.2)
[2022-11-26 06:13] LABS: Calcium 7.1 mg/dL (8.6-10.3); Creatinine, Serum 0.71 mg/dL (0.67-1.17); Magnesium 1.8 mg/dL (1.9-2.7); Potassium 3.5 mmol/L (3.5-5.0); eGFR CKD-EPI 98.1 (>60)
[2022-11-26] MEDS ORDERED: Magnesium Sulfate 2 gm BAG 2 GM/50 ML BAG IVPB ONE (07:46)
[2022-11-26] MEDS: Valproic Acid LIQ 250 MG/5 ML UDC PO SCH (08:50)
[2022-11-26] MEDS: Psyllium PAK PO SCH (08:51)
[2022-11-26] MEDS ORDERED: Atropine 1% (ORAL/SL) 15 ML BTL SL PRN (10:13)
[2022-11-26] MEDS: Pantoprazole VIAL 40 MG VIAL IV SCH ×2 (11:31→22:02)
[2022-11-26] MEDS: Acetaminophen IV 1 GM/100ML 1,000 MG/100 ML BAG IV PRN (14:03)
[2022-11-26] MEDS: Thiamine 100 MG/ML 2 ml VIAL 250 MG in NS 0.9% 100 ml BAG 100 ML IV SCH (21:07)
[2022-11-26] MEDS: Loperamide LIQ 2 MG/15 ML UDC PEG TUBE SCH (21:10)
[2022-11-26] MEDS: Lactated Ringers 1000 ml BAG 1,000 ML IV SCH (22:47)
[2022-11-27] MEDS: ZOSYN 3.375 GM Q8H per EXTENDED INFUSION IV SCH ×2 (03:25→11:45)
[2022-11-27 04:40] LABS: Hematocrit 24.1 % (38-53); Hemoglobin 7.7 g/dL (13.2-16.3); Mean Corpuscular Hgb Conc 31.7 g/dL (31-36); Mean Corpuscular Volume 81.8 fL (80-97); Mean Platelet Volume 9.6 fL (7.5-11.2); Platelet Count 131 10^3/uL (150-450); Red Blood Count 2.95 10^6/uL (4.06-5.63); Red Cell Distribution Width 23.1 % (12-17); White Blood Count 9.6 10^3/uL (3.6-10.2)
[2022-11-27] MEDS: guaiFENesin 100 mg/5 ml LIQ unit dose cup G TUBE SCH ×4 (04:43→22:39)
[2022-11-27 04:56] LABS: Calcium 7.3 mg/dL (8.6-10.3); Creatinine, Serum 0.69 mg/dL (0.67-1.17); Magnesium 2.1 mg/dL (1.9-2.7); eGFR CKD-EPI 98.9 (>60)
[2022-11-27 05:00] LABS: ABS Eosinophils 0.2 10^3/uL (0.0-0.5); ABS Lymphocytes 0.8 10^3/uL (1.0-4.8); ABS Monocytes 0.6 10^3/uL (0.0-1.1); Lymphocyte % 8.3 %
[2022-11-27 05:11] LABS: Potassium 3.6 mmol/L (3.5-5.0)
[2022-11-27] MEDS: Psyllium PAK PO SCH (08:55)
[2022-11-27] MEDS: Valproic Acid LIQ 250 MG/5 ML UDC PO SCH (08:55)
[2022-11-27] MEDS ORDERED: LORazepam 2 mg VIAL 1 ml ONE (10:32)
[2022-11-27] MEDS: Enoxaparin 80 MG/0.8 ML SYR SUBCUT SCH ×2 (11:41→22:40)
[2022-11-27] MEDS: Vitamins A & D OINT TUBE TOPICAL SCH ×2 (11:44→22:55)
[2022-11-27] MEDS: Pantoprazole VIAL 40 MG VIAL IV SCH ×2 (11:46→22:37)
[2022-11-27] MEDS ORDERED: Zosyn per Pharmacy NOTE FOLLOW UP SCH (12:00)
[2022-11-27] MEDS: ceFAZolin 2 GM in NS PREMIX 2 GM/100 ML BAG IVPB SCH ×2 (12:24→22:37)
[2022-11-27 12:38] LABS: INR 1.16 (0.88-1.18)
[2022-11-27] MEDS: NORMOSOL-R pH 7.4 1000 mL BAG 1,000 ML IV SCH ×2 (13:46→13:47)
[2022-11-27] MEDS: D5W 1/2 NS 1000 ml BAG 1,000 ML IV SCH (13:49)
[2022-11-27] MEDS ORDERED: Thiamine 100 MG/ML 2 ml VIAL (200 mg) ONE (22:20)
[2022-11-27] MEDS: Loperamide LIQ 2 MG/15 ML UDC PEG TUBE SCH (22:55)
[2022-11-27] MEDS: Thiamine 100 MG/ML 2 ml VIAL 250 MG in NS 0.9% 100 ml BAG 100 ML IV SCH (23:19)
[2022-11-28] MEDS: ceFAZolin 2 GM in NS PREMIX 2 GM/100 ML BAG IVPB SCH ×2 (04:22→15:53)
[2022-11-28] MEDS: guaiFENesin 100 mg/5 ml LIQ unit dose cup G TUBE SCH ×4 (04:22→23:45)
[2022-11-28 05:35] LABS: ABS Eosinophils 0.2 10^3/uL (0.0-0.5); ABS Lymphocytes 0.9 10^3/uL (1.0-4.8); ABS Monocytes 0.4 10^3/uL (0.0-1.1); ABS Nucleated RBC 0.01 10^3/ul; Eosinophil % 2.6 %; Hematocrit 22.8 % (38-53); Hemoglobin 7.3 g/dL (13.2-16.3); Lymphocyte % 12.3 %; Mean Corpuscular Hemoglobin 25.7 pg (27-33); Mean Corpuscular Hgb Conc 31.9 g/dL (31-36); Mean Corpuscular Volume 80.6 fL (80-97); Mean Platelet Volume 9.5 fL (7.5-11.2); Nucleated Red Blood Cells % 0.1 /100 WBC (0.0-0.4); Platelet Count 149 10^3/uL (150-450); Red Blood Count 2.82 10^6/uL (4.06-5.63); Red Cell Distribution Width 22.6 % (12-17); White Blood Count 7.6 10^3/uL (3.6-10.2)
[2022-11-28 05:51] LABS: Calcium 7.5 mg/dL (8.6-10.3); Creatinine, Serum 0.71 mg/dL (0.67-1.17); Magnesium 1.8 mg/dL (1.9-2.7); Potassium 2.8 mmol/L (3.5-5.0); eGFR CKD-EPI 98.1 (>60)
[2022-11-28] MEDS ORDERED: Magnesium Sulfate IV 1GM/100ML 1 GM/100 ML BAG IV ONE (08:30)
[2022-11-28] MEDS: KCL 20 MEQ/100 ML IVPREMIX 20 MEQ/100 ML BAG IV SCH ×4 (12:50→22:13)
[2022-11-28] MEDS: Psyllium PAK PO SCH (12:54)
[2022-11-28] MEDS: Pantoprazole VIAL 40 MG VIAL IV SCH ×2 (13:03→23:45)
[2022-11-28] MEDS: Enoxaparin 80 MG/0.8 ML SYR SUBCUT SCH ×2 (13:14→22:14)
[2022-11-28] MEDS: Vitamins A & D OINT TUBE TOPICAL SCH ×2 (13:39→22:24)
[2022-11-28] MEDS: Valproic Acid LIQ 250 MG/5 ML UDC PO SCH (14:01)
[2022-11-28 15:25] LABS: % Iron Saturation 11 % (15-55); .Transferrin 130 mg/dL (203-362); Iron < 20 ug/dL (50-212); LDH 140 U/L (140-271); Total Iron Binding Capacity 182 mcg/dL (250-450); Transferrin 130 mg/dL (203-362); Unsaturated Iron Binding 162 ug/dL
[2022-11-28 15:36] LABS: Ferritin 107.6 ng/mL (24-336)
[2022-11-28 15:39] LABS: Vitamin B12 1107 pg/mL (180-914)
[2022-11-28 15:40] LABS: Folate 6.62 ng/mL (5.90-24.80)
[2022-11-28] MEDS ORDERED: Furosemide 40 mg/4 ml IV VIAL IV SLOW PU ONE (16:05)
[2022-11-28] MEDS ORDERED: cefTRIAXone 2 gm/50 mL D5W 2 GM/50 ML BAG IV SCH (17:00)
[2022-11-28 17:53] LABS: Corrected Retic Count 0.5 % (0.5-1.5); Hematocrit for Retic CNT 23.3 % (38-53); Immature Retic Fraction 0.46; RBC Retic Count 2.85 10^6/ul (4.06-5.63)
[2022-11-28] MEDS: D5W 1000 ml BAG 1,000 ML IV SCH (19:45)
[2022-11-28 19:55] LABS: Calcium 7.8 mg/dL (8.6-10.3); Creatinine, Serum 0.7 mg/dL (0.67-1.17); Potassium 3.3 mmol/L (3.5-5.0); eGFR CKD-EPI 98.5 (>60)
[2022-11-28] MEDS: Loperamide LIQ 2 MG/15 ML UDC PEG TUBE SCH (22:13)
[2022-11-28] MEDS: Thiamine 100 MG/ML 2 ml VIAL 250 MG in NS 0.9% 100 ml BAG 100 ML IV SCH (22:14)
[2022-11-29] MEDS ORDERED: Potassium Chloride LIQUID 20 MEQ/15 ML LIQUID PEG TUBE ONE (01:20)
[2022-11-29] MEDS: Acetaminophen IV 1 GM/100ML 1,000 MG/100 ML BAG IV PRN (02:48)
[2022-11-29] MEDS: guaiFENesin 100 mg/5 ml LIQ unit dose cup G TUBE SCH ×4 (05:34→23:55)
[2022-11-29 06:50] LABS: ABS Basophils 0.1 10^3/uL (0.0-0.1); ABS Eosinophils 0.1 10^3/uL (0.0-0.5); ABS Lymphocytes 1.1 10^3/uL (1.0-4.8); ABS Monocytes 0.6 10^3/uL (0.0-1.1); ABS Neutrophils 5.8 10^3/uL (1.5-7.6); ABS Nucleated RBC 0.01 10^3/ul; Eosinophil % 1.8 %; Hematocrit 21.4 % (38-53); Hemoglobin 6.8 g/dL (13.2-16.3); Lymphocyte % 14.5 %; Mean Corpuscular Hemoglobin 25.8 pg (27-33); Mean Corpuscular Hgb Conc 31.9 g/dL (31-36); Mean Corpuscular Volume 80.8 fL (80-97); Mean Platelet Volume 8.8 fL (7.5-11.2); Nucleated Red Blood Cells % 0.2 /100 WBC (0.0-0.4); Platelet Count 192 10^3/uL (150-450); Red Blood Count 2.64 10^6/uL (4.06-5.63); Red Cell Distribution Width 22.9 % (12-17); White Blood Count 7.8 10^3/uL (3.6-10.2)
[2022-11-29 07:27] LABS: Calcium 7.8 mg/dL (8.6-10.3); Creatinine, Serum 0.65 mg/dL (0.67-1.17); Magnesium 1.7 mg/dL (1.9-2.7); eGFR CKD-EPI 100.7 (>60)
[2022-11-29] MEDS: Psyllium PAK PO SCH (09:13)
[2022-11-29] MEDS: Pantoprazole VIAL 40 MG VIAL IV SCH ×2 (09:13→23:55)
[2022-11-29] MEDS: Valproic Acid LIQ 250 MG/5 ML UDC PO SCH (09:14)
[2022-11-29] MEDS: Enoxaparin 80 MG/0.8 ML SYR SUBCUT SCH ×2 (09:15→21:22)
[2022-11-29] MEDS: Vitamins A & D OINT TUBE TOPICAL SCH ×2 (09:16→21:22)
[2022-11-29] MEDS: D5W 1000 ml BAG 1,000 ML IV SCH (09:43)
[2022-11-29] MEDS ORDERED: Piperacillin/Tazobac 3.375 BAG 3.375 GM/100 ML BAG IV ONE (11:03)
[2022-11-29] MEDS ORDERED: Vancomycin per Pharmacy 1 EA NOTE FOLLOW UP PRN (11:14)
[2022-11-29] MEDS ORDERED: Zosyn per Pharmacy NOTE FOLLOW UP PRN (11:23)
[2022-11-29] MEDS ORDERED: Vancomycin 1,500 MG in NS 0.9% 250 ml 250 ML IVPB ONE (11:30)
[2022-11-29] MEDS ORDERED: Zosyn per Pharmacy NOTE FOLLOW UP SCH (12:00)
[2022-11-29 16:56] LABS: Hematocrit 26.1 % (38-53); Hemoglobin 8.3 g/dL (13.2-16.3)
[2022-11-29] MEDS: ZOSYN 3.375 GM Q8H per EXTENDED INFUSION IV SCH (17:23)
[2022-11-29] MEDS: Loperamide LIQ 2 MG/15 ML UDC PEG TUBE SCH (20:56)
[2022-11-29] MEDS: Thiamine 100 MG/ML 2 ml VIAL 250 MG in NS 0.9% 100 ml BAG 100 ML IV SCH (20:58)
[2022-11-29] MEDS: Vancomycin 1,500 MG in NS 0.9% 250 ml 250 ML IVPB SCH (23:56)
[2022-11-30] MEDS: ZOSYN 3.375 GM Q8H per EXTENDED INFUSION IV SCH ×3 (02:17→17:46)
[2022-11-30] MEDS: D5W 1000 ml BAG 1,000 ML IV SCH (02:20)
[2022-11-30] MEDS: guaiFENesin 100 mg/5 ml LIQ unit dose cup G TUBE SCH ×4 (05:40→21:41)
[2022-11-30 07:41] LABS: ABS Basophils 0.1 10^3/uL (0.0-0.1); ABS Eosinophils 0.2 10^3/uL (0.0-0.5); ABS Lymphocytes 0.8 10^3/uL (1.0-4.8); ABS Monocytes 0.7 10^3/uL (0.0-1.1); ABS Neutrophils 6.8 10^3/uL (1.5-7.6); ABS Nucleated RBC 0.02 10^3/ul; Eosinophil % 2.4 %; Hematocrit 25.4 % (38-53); Hemoglobin 8.2 g/dL (13.2-16.3); Mean Corpuscular Hemoglobin 26.1 pg (27-33); Mean Corpuscular Hgb Conc 32.3 g/dL (31-36); Mean Corpuscular Volume 80.8 fL (80-97); Mean Platelet Volume 9.1 fL (7.5-11.2); Nucleated Red Blood Cells % 0.2 /100 WBC (0.0-0.4); Platelet Count 211 10^3/uL (150-450); Red Blood Count 3.14 10^6/uL (4.06-5.63); Red Cell Distribution Width 21.4 % (12-17); White Blood Count 8.6 10^3/uL (3.6-10.2)
[2022-11-30 07:53] LABS: Calcium 7.9 mg/dL (8.6-10.3); Creatinine, Serum 0.61 mg/dL (0.67-1.17); Magnesium 1.5 mg/dL (1.9-2.7); Potassium 3.5 mmol/L (3.5-5.0); eGFR CKD-EPI 102.7 (>60)
[2022-11-30] MEDS: Vitamins A & D OINT TUBE TOPICAL SCH ×2 (08:29→21:40)
[2022-11-30] MEDS ORDERED: KCL 20 MEQ/100 ML IVPREMIX 20 MEQ/100 ML BAG IV ONE (09:16)
[2022-11-30] MEDS: Pantoprazole VIAL 40 MG VIAL IV SCH ×2 (09:17→21:41)
[2022-11-30] MEDS ORDERED: Magnesium Sulfate IV 1GM/100ML 1 GM/100 ML BAG IV ONE (09:17)
[2022-11-30] MEDS: Enoxaparin 80 MG/0.8 ML SYR SUBCUT SCH ×2 (09:18→21:40)
[2022-11-30] MEDS: Valproic Acid LIQ 250 MG/5 ML UDC PO SCH (09:18)
[2022-11-30] MEDS: Psyllium PAK PO SCH (09:18)
[2022-11-30] MEDS ORDERED: Magnesium Sulfate 2 gm BAG 0 GM/0 ML BAG ONE (09:48)
[2022-11-30] MEDS ORDERED: D5W 1000 ml BAG 1,000 ML IV SCH (10:05)
[2022-11-30] MEDS: Vancomycin 1,500 MG in NS 0.9% 250 ml 250 ML IVPB SCH (13:01)
[2022-11-30] MEDS: Acetaminophen IV 1 GM/100ML 1,000 MG/100 ML BAG IV PRN (14:38)
[2022-11-30] MEDS: Thiamine 100 MG/ML 2 ml VIAL 250 MG in NS 0.9% 100 ml BAG 100 ML IV SCH (20:48)
[2022-11-30] MEDS: Loperamide LIQ 2 MG/15 ML UDC PEG TUBE SCH (21:39)
[2022-12-01] MEDS: Albuterol/Ipratropium NEB.SOL (2.5/0.5 MG) 3 ML NEB.SOLN INH PRN (00:26)
[2022-12-01] MEDS: Vancomycin 1,500 MG in NS 0.9% 250 ml 250 ML IVPB SCH ×2 (01:03→12:21)
[2022-12-01] MEDS: ZOSYN 3.375 GM Q8H per EXTENDED INFUSION IV SCH ×3 (03:03→18:08)
[2022-12-01] MEDS ORDERED: D5W 1000 ml BAG 1,000 ML IV SCH ×2 (04:00→11:00)
[2022-12-01] MEDS: guaiFENesin 100 mg/5 ml LIQ unit dose cup G TUBE SCH ×4 (05:51→22:18)
[2022-12-01 07:19] LABS: ABS Basophils 0.1 10^3/uL (0.0-0.1); ABS Eosinophils 0.2 10^3/uL (0.0-0.5); ABS Lymphocytes 0.9 10^3/uL (1.0-4.8); ABS Monocytes 0.7 10^3/uL (0.0-1.1); ABS Neutrophils 6.2 10^3/uL (1.5-7.6); ABS Nucleated RBC 0.01 10^3/ul; Eosinophil % 2.1 %; Hematocrit 23.3 % (38-53); Hemoglobin 7.4 g/dL (13.2-16.3); Lymphocyte % 11.6 %; Mean Corpuscular Hemoglobin 26.1 pg (27-33); Mean Corpuscular Hgb Conc 31.6 g/dL (31-36); Mean Corpuscular Volume 82.7 fL (80-97); Mean Platelet Volume 8.7 fL (7.5-11.2); Nucleated Red Blood Cells % 0.1 /100 WBC (0.0-0.4); Platelet Count 199 10^3/uL (150-450); Red Blood Count 2.82 10^6/uL (4.06-5.63); White Blood Count 8.1 10^3/uL (3.6-10.2)
[2022-12-01 07:35] LABS: Albumin/Globulin Ratio 0.5 (1-3); Calcium 7.7 mg/dL (8.6-10.3); Creatinine, Serum 0.54 mg/dL (0.67-1.17); Globulin 4.4 g/dL (2-4); Magnesium 1.5 mg/dL (1.9-2.7); Potassium 3.1 mmol/L (3.5-5.0); Total Bilirubin 0.2 mg/dL (0.2-1.0); Total Protein 6.4 g/dL (6.4-8.9); eGFR CKD-EPI 106.5 (>60)
[2022-12-01] MEDS ORDERED: Magnesium Sulfate IV 3 GM in NS 0.9% 100 ml BAG 100 ML IVPB ONE (07:55)
[2022-12-01] MEDS ORDERED: Potassium Chloride LIQUID 20 MEQ/15 ML LIQUID PO ONE (07:57)
[2022-12-01] MEDS: Pantoprazole VIAL 40 MG VIAL IV SCH ×2 (10:03→22:20)
[2022-12-01] MEDS: Vitamins A & D OINT TUBE TOPICAL SCH ×2 (10:03→22:28)
[2022-12-01] MEDS: Valproic Acid LIQ 250 MG/5 ML UDC PO SCH (10:03)
[2022-12-01] MEDS: Enoxaparin 80 MG/0.8 ML SYR SUBCUT SCH ×2 (10:03→22:35)
[2022-12-01] MEDS: Psyllium PAK PO SCH (10:04)
[2022-12-01] MEDS: KCL 20 MEQ/100 ML IVPREMIX 20 MEQ/100 ML BAG IV SCH ×2 (10:06→12:21)
[2022-12-01] MEDS ORDERED: Vancomycin Trough Check NOTE FOLLOW UP ONE (11:30)
[2022-12-01] MEDS: Loperamide LIQ 2 MG/15 ML UDC PEG TUBE SCH (22:19)
[2022-12-01] MEDS: Thiamine 100 MG/ML 2 ml VIAL 250 MG in NS 0.9% 100 ml BAG 100 ML IV SCH (22:29)
[2022-12-02] MEDS: ZOSYN 3.375 GM Q8H per EXTENDED INFUSION IV SCH ×3 (02:48→17:19)
[2022-12-02] MEDS ORDERED: Vancomycin Random Level NOTE FOLLOW UP ONE (06:00)
[2022-12-02] MEDS: guaiFENesin 100 mg/5 ml LIQ unit dose cup G TUBE SCH ×4 (06:22→22:55)
[2022-12-02 06:47] LABS: ABS Basophils 0.1 10^3/uL (0.0-0.1); ABS Eosinophils 0.3 10^3/uL (0.0-0.5); ABS Lymphocytes 0.8 10^3/uL (1.0-4.8); ABS Monocytes 0.6 10^3/uL (0.0-1.1); ABS Neutrophils 5.2 10^3/uL (1.5-7.6); ABS Nucleated RBC 0.01 10^3/ul; Eosinophil % 3.7 %; Hematocrit 23.7 % (38-53); Hemoglobin 7.5 g/dL (13.2-16.3); Mean Corpuscular Hemoglobin 26.4 pg (27-33); Mean Corpuscular Hgb Conc 31.8 g/dL (31-36); Mean Platelet Volume 8.6 fL (7.5-11.2); Nucleated Red Blood Cells % 0.1 /100 WBC (0.0-0.4); Platelet Count 180 10^3/uL (150-450); Red Blood Count 2.86 10^6/uL (4.06-5.63)
[2022-12-02 07:03] LABS: Creatinine, Serum 0.42 mg/dL (0.67-1.17); Magnesium 1.6 mg/dL (1.9-2.7); Potassium 3.6 mmol/L (3.5-5.0); eGFR CKD-EPI 114.9 (>60)
[2022-12-02 07:05] LABS: Vancomycin Random 18.2 mcg/mL
[2022-12-02] MEDS ORDERED: Magnesium Sulfate IV 1GM/100ML 1 GM/100 ML BAG IV ONE (08:00)
[2022-12-02] MEDS: Valproic Acid LIQ 250 MG/5 ML UDC PO SCH (10:09)
[2022-12-02] MEDS: Enoxaparin 80 MG/0.8 ML SYR SUBCUT SCH ×2 (10:10→21:07)
[2022-12-02] MEDS: Pantoprazole VIAL 40 MG VIAL IV SCH ×2 (10:10→22:55)
[2022-12-02] MEDS: Vitamins A & D OINT TUBE TOPICAL SCH ×2 (10:10→21:08)
[2022-12-02] MEDS: Psyllium PAK PO SCH (10:10)
[2022-12-02] MEDS: Vancomycin 750 MG in NS 0.9% 250 ML IVPB SCH (17:19)
[2022-12-02] MEDS: Loperamide LIQ 2 MG/15 ML UDC PEG TUBE SCH (21:07)
[2022-12-02] MEDS: Thiamine 100 MG/ML 2 ml VIAL 250 MG in NS 0.9% 100 ml BAG 100 ML IV SCH (21:10)
[2022-12-03] MEDS: Albuterol/Ipratropium NEB.SOL (2.5/0.5 MG) 3 ML NEB.SOLN INH PRN (00:14)
[2022-12-03] MEDS: ZOSYN 3.375 GM Q8H per EXTENDED INFUSION IV SCH ×3 (01:44→17:11)
[2022-12-03] MEDS: Vancomycin 750 MG in NS 0.9% 250 ML IVPB SCH (05:29)
[2022-12-03] MEDS: guaiFENesin 100 mg/5 ml LIQ unit dose cup G TUBE SCH ×4 (05:29→21:05)
[2022-12-03 08:04] LABS: ABS Basophils 0.1 10^3/uL (0.0-0.1); ABS Eosinophils 0.2 10^3/uL (0.0-0.5); ABS Lymphocytes 0.7 10^3/uL (1.0-4.8); ABS Monocytes 0.4 10^3/uL (0.0-1.1); ABS Neutrophils 4.7 10^3/uL (1.5-7.6); Eosinophil % 3.5 %; Hematocrit 23.4 % (38-53); Hemoglobin 7.4 g/dL (13.2-16.3); Lymphocyte % 10.8 %; Mean Corpuscular Hemoglobin 26.3 pg (27-33); Mean Corpuscular Hgb Conc 31.7 g/dL (31-36); Mean Corpuscular Volume 82.9 fL (80-97); Nucleated Red Blood Cells % 0.1 /100 WBC (0.0-0.4); Platelet Count 162 10^3/uL (150-450); Red Blood Count 2.82 10^6/uL (4.06-5.63); Red Cell Distribution Width 22.7 % (12-17); White Blood Count 6.1 10^3/uL (3.6-10.2)
[2022-12-03 08:06] LABS: Albumin/Globulin Ratio 0.5 (1-3); Calcium 7.4 mg/dL (8.6-10.3); Creatinine, Serum 0.42 mg/dL (0.67-1.17); Globulin 4.2 g/dL (2-4); Magnesium 1.4 mg/dL (1.9-2.7); Potassium 3.2 mmol/L (3.5-5.0); Total Bilirubin 0.2 mg/dL (0.2-1.0); Total Protein 6.2 g/dL (6.4-8.9); eGFR CKD-EPI 114.9 (>60)
[2022-12-03] MEDS: Vitamins A & D OINT TUBE TOPICAL SCH ×2 (08:34→21:05)
[2022-12-03] MEDS: Valproic Acid LIQ 250 MG/5 ML UDC PO SCH (08:36)
[2022-12-03] MEDS: Enoxaparin 80 MG/0.8 ML SYR SUBCUT SCH ×2 (08:36→21:04)
[2022-12-03] MEDS: Psyllium PAK PO SCH (08:36)
[2022-12-03] MEDS: Pantoprazole VIAL 40 MG VIAL IV SCH (10:25)
[2022-12-03] MEDS ORDERED: Magnesium Sulfate IV 1GM/100ML 1 GM/100 ML BAG IV ONE (10:38)
[2022-12-03] MEDS ORDERED: KCL 20 MEQ/100 ML IVPREMIX 20 MEQ/100 ML BAG IV ONE (10:39)
[2022-12-03] MEDS ORDERED: Magnesium Sulfate 2 gm BAG 2 GM/50 ML BAG IVPB ONE (12:58)
[2022-12-03] MEDS ORDERED: KCL 20 MEQ/100 ML IVPREMIX 20 MEQ/100 ML BAG IV SCH (13:00)
[2022-12-03 13:19] LABS: C Reactive Protein 28.5 mg/L (<8.01)
[2022-12-03] MEDS ORDERED: Magnesium Sulfate 2 GM IV (Premix) IVPB ONE (15:15)
[2022-12-03] MEDS: KCL 20 MEQ/100 ML IVPREMIX 20 MEQ/100 ML BAG IV SCH ×3 (15:33→23:06)
[2022-12-03] MEDS: Loperamide LIQ 2 MG/15 ML UDC PEG TUBE SCH (21:17)
[2022-12-03] MEDS: Thiamine 100 MG/ML 2 ml VIAL 250 MG in NS 0.9% 100 ml BAG 100 ML IV SCH (21:33)
[2022-12-04] MEDS: Acetaminophen IV 1 GM/100ML 1,000 MG/100 ML BAG IV PRN
[2022-12-04] MEDS: ZOSYN 3.375 GM Q8H per EXTENDED INFUSION IV SCH ×3 (02:33→17:45)
[2022-12-04] MEDS ORDERED: Vancomycin Trough Check NOTE FOLLOW UP ONE (05:30)
[2022-12-04] MEDS: guaiFENesin 100 mg/5 ml LIQ unit dose cup G TUBE SCH ×4 (05:42→23:03)
[2022-12-04 06:40] LABS: ABS Basophils 0.1 10^3/uL (0.0-0.1); ABS Eosinophils 0.2 10^3/uL (0.0-0.5); ABS Lymphocytes 0.7 10^3/uL (1.0-4.8); ABS Monocytes 0.5 10^3/uL (0.0-1.1); ABS Neutrophils 4.3 10^3/uL (1.5-7.6); ABS Nucleated RBC 0.01 10^3/ul; Eosinophil % 2.8 %; Hematocrit 23.9 % (38-53); Hemoglobin 7.7 g/dL (13.2-16.3); Mean Corpuscular Hemoglobin 26.9 pg (27-33); Mean Corpuscular Hgb Conc 32.2 g/dL (31-36); Mean Corpuscular Volume 83.6 fL (80-97); Mean Platelet Volume 8.7 fL (7.5-11.2); Nucleated Red Blood Cells % 0.2 /100 WBC (0.0-0.4); Platelet Count 145 10^3/uL (150-450); Red Blood Count 2.86 10^6/uL (4.06-5.63); Red Cell Distribution Width 22.6 % (12-17); White Blood Count 5.7 10^3/uL (3.6-10.2)
[2022-12-04 06:59] LABS: Calcium 7.5 mg/dL (8.6-10.3); Creatinine, Serum 0.43 mg/dL (0.67-1.17); Magnesium 1.6 mg/dL (1.9-2.7); Potassium 3.9 mmol/L (3.5-5.0); eGFR CKD-EPI 114.1 (>60)
[2022-12-04] MEDS: Vitamins A & D OINT TUBE TOPICAL SCH ×2 (09:01→20:52)
[2022-12-04] MEDS: Enoxaparin 80 MG/0.8 ML SYR SUBCUT SCH ×2 (09:58→23:03)
[2022-12-04] MEDS: Psyllium PAK PO SCH (09:58)
[2022-12-04] MEDS: Valproic Acid LIQ 250 MG/5 ML UDC PO SCH (09:59)
[2022-12-04] MEDS ORDERED: Furosemide 40 mg/4 ml IV VIAL IV ONE (10:12)
[2022-12-04] MEDS: Loperamide LIQ 2 MG/15 ML UDC PEG TUBE SCH (20:52)
[2022-12-05] MEDS: ZOSYN 3.375 GM Q8H per EXTENDED INFUSION IV SCH (01:49)
[2022-12-05] MEDS: guaiFENesin 100 mg/5 ml LIQ unit dose cup G TUBE SCH ×4 (05:46→22:43)
[2022-12-05 07:26] LABS: Albumin 2.3 g/dL (3.2-5.2); Albumin/Globulin Ratio 0.5 (1-3); Calcium 7.9 mg/dL (8.6-10.3); Creatinine, Serum 0.42 mg/dL (0.67-1.17); Globulin 4.4 g/dL (2-4); Potassium 3.4 mmol/L (3.5-5.0); Total Bilirubin 0.2 mg/dL (0.2-1.0); Total Protein 6.7 g/dL (6.4-8.9); eGFR CKD-EPI 114.9 (>60)
[2022-12-05 09:07] LABS: Magnesium 1.3 mg/dL (1.9-2.7)
[2022-12-05] MEDS ORDERED: Magnesium Sulfate IV 3 GM in NS 0.9% 100 ml BAG 100 ML IVPB ONE (09:18)
[2022-12-05] MEDS ORDERED: Furosemide 40 mg/4 ml IV VIAL IV ONE (09:31)
[2022-12-05] MEDS: Psyllium PAK PO SCH (09:59)
[2022-12-05] MEDS: Valproic Acid LIQ 250 MG/5 ML UDC PO SCH (09:59)
[2022-12-05] MEDS: Enoxaparin 80 MG/0.8 ML SYR SUBCUT SCH ×2 (10:00→22:43)
[2022-12-05] MEDS: KCL 20 MEQ/100 ML IVPREMIX 20 MEQ/100 ML BAG IV SCH ×3 (10:18→16:56)
[2022-12-05] MEDS: Vitamins A & D OINT TUBE TOPICAL SCH ×2 (10:33→22:45)
[2022-12-05 14:24] LABS: Calcium 8.3 mg/dL (8.6-10.3); Creatinine, Serum 0.44 mg/dL (0.67-1.17); Magnesium 1.9 mg/dL (1.9-2.7); Potassium 3.5 mmol/L (3.5-5.0); eGFR CKD-EPI 113.3 (>60)
[2022-12-05] MEDS ORDERED: Potassium Chloride LIQUID 20 MEQ/15 ML LIQUID PEG TUBE ONE (15:52)
[2022-12-05] MEDS: Loperamide LIQ 2 MG/15 ML UDC PEG TUBE SCH (22:43)
[2022-12-06] MEDS: guaiFENesin 100 mg/5 ml LIQ unit dose cup G TUBE SCH ×4 (06:08→22:50)
[2022-12-06 06:53] LABS: Calcium 8.5 mg/dL (8.6-10.3); Magnesium 1.5 mg/dL (1.9-2.7); Potassium 3.7 mmol/L (3.5-5.0)
[2022-12-06 06:58] LABS: Creatinine, Serum 0.34 mg/dL (0.67-1.17); eGFR CKD-EPI 122.5 (>60)
[2022-12-06 07:06] LABS: ABS Basophils 0.1 10^3/uL (0.0-0.1); ABS Eosinophils 0.2 10^3/uL (0.0-0.5); ABS Lymphocytes 1.3 10^3/uL (1.0-4.8); ABS Monocytes 0.7 10^3/uL (0.0-1.1); ABS Nucleated RBC 0.01 10^3/ul; Eosinophil % 3.4 %; Hematocrit 23.7 % (38-53); Hemoglobin 7.6 g/dL (13.2-16.3); Lymphocyte % 21.1 %; Mean Corpuscular Hemoglobin 26.7 pg (27-33); Mean Corpuscular Hgb Conc 32.2 g/dL (31-36); Mean Corpuscular Volume 83.1 fL (80-97); Mean Platelet Volume 9.2 fL (7.5-11.2); Nucleated Red Blood Cells % 0.1 /100 WBC (0.0-0.4); Platelet Count 186 10^3/uL (150-450); Red Blood Count 2.86 10^6/uL (4.06-5.63); Red Cell Distribution Width 23.5 % (12-17); White Blood Count 6.3 10^3/uL (3.6-10.2)
[2022-12-06] MEDS ORDERED: Magnesium Sulfate 2 gm BAG 2 GM/50 ML BAG IVPB ONE (08:24)
[2022-12-06] MEDS ORDERED: Furosemide 40 mg/4 ml IV VIAL IV ONE (11:00)
[2022-12-06] MEDS: KCL 10 MEQ/50 ML IVPREMIX 10 MEQ/50 ML BAG IV SCH ×3 (12:10→15:18)
[2022-12-06] MEDS: Valproic Acid LIQ 250 MG/5 ML UDC PO SCH (12:19)
[2022-12-06] MEDS: Psyllium PAK PO SCH (12:24)
[2022-12-06] MEDS: Enoxaparin 80 MG/0.8 ML SYR SUBCUT SCH (12:33)
[2022-12-06] MEDS: Vitamins A & D OINT TUBE TOPICAL SCH ×2 (12:38→22:50)
[2022-12-06] MEDS: Loperamide LIQ 2 MG/15 ML UDC PEG TUBE SCH (22:49)
[2022-12-07] MEDS: guaiFENesin 100 mg/5 ml LIQ unit dose cup G TUBE SCH ×2 (05:29→09:44)
[2022-12-07 06:07] LABS: Hematocrit 23.2 % (38-53); Hemoglobin 7.5 g/dL (13.2-16.3); Mean Corpuscular Hemoglobin 26.6 pg (27-33); Mean Corpuscular Hgb Conc 32.1 g/dL (31-36); Platelet Count 196 10^3/uL (150-450); Red Cell Distribution Width 22.9 % (12-17); White Blood Count 6.2 10^3/uL (3.6-10.2)
[2022-12-07 06:27] LABS: Calcium 8.3 mg/dL (8.6-10.3); Creatinine, Serum 0.44 mg/dL (0.67-1.17); Magnesium 1.6 mg/dL (1.9-2.7); Potassium 3.7 mmol/L (3.5-5.0); eGFR CKD-EPI 113.3 (>60)
[2022-12-07 07:31] LABS: ABS Basophils 0.1 10^3/uL (0.0-0.1); ABS Eosinophils 0.3 10^3/uL (0.0-0.5); ABS Lymphocytes 1.3 10^3/uL (1.0-4.8); ABS Monocytes 0.7 10^3/uL (0.0-1.1); ABS Neutrophils 3.7 10^3/uL (1.5-7.6); ABS Nucleated RBC 0.01 10^3/ul; Eosinophil % 4.3 %; Lymphocyte % 21.7 %; Nucleated Red Blood Cells % 0.2 /100 WBC (0.0-0.4)
[2022-12-07] MEDS: Valproic Acid LIQ 250 MG/5 ML UDC PO SCH (09:44)
[2022-12-07] MEDS: Psyllium PAK PO SCH (09:47)
[2022-12-07] MEDS: Vitamins A & D OINT TUBE TOPICAL SCH (10:03)
[2022-12-07 10:26] VITALS: BP 110/61
[2022-12-07 11:52] LABS: Rapid COVID-19 Molecular Undetected (Undetected)
== END 2022-12-07 15:00 | DRG 698 ==
LOC: ED 22:02 → EDHOLD 11-19 00:32 → SUATTDRO 11-19 00:32 → ICU 11-19 01:24 → SSU 11-27 20:54
PROVIDERS: ADMIT Surgery Surgical Critical Care; ATTEND Internal Medicine